=== PATIENT | male | born 1935 | race Caucasian/White ===

== ENCOUNTER 2016-06-04 02:54 | Emergency (ER) | payer MEDICARE ==
[2016-06-04] MEDS ORDERED: Saline NASAL SPRAY 0.65%* BTL BOTH NARES ONE (04:18)
--- NOTE | 2016-06-04 04:22 | ED ---
Cheryl Hernandez Rebecca, scribed for Mike Alan MD on 06/04/16 at 0331 . Throat Pain/Nasal Congestion - HPI Summary HPI Summary: Pt is an 80 y/o M BIBA who presents to ED c/o epistaxis. Pt reports that sx suddenly began at approximately 1800 and had been intermittent since onset, with the last episode starting at 0200. Bleeding was out of the left nare. Sx were resolved by applying pressure in the ED. Sx aggravated by nothing. Denies any other symptoms including lightheadedness. Is not on blood thinners. - History of Current Complaint Chief Complaint: EDEpistaxis Time Seen by Provider: 06/04/16 03:00 Hx Obtained From: Patient Onset/Duration: Sudden Onset, Lasting Hours, Resolved Associated Signs And Symptoms: Positive: Negative - Allergies/Home Medications Allergies/Adverse Reactions: Allergies Allergy/AdvReac Type Severity Reaction Status Date / Time Zolpidem [From Ambien] Allergy nightmares Verified 06/04/16 03:08 PMH/Surg Hx/FS Hx/Imm Hx Endocrine/Hematology History: Denies: Hx Diabetes Cardiovascular History: Reports: Hx Hypertension - ON MEDS Denies: Hx Pacemaker/ICD Respiratory History: Reports: Hx Asthma History: Reports: 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 APPENDECTOMY; RT CATARACT Hx Anesthesia Reactions: No Infectious Disease History: No Infectious Disease History: Denies: History Other Infectious Disease, Traveled Outside the [place] in Last 30 Days - Family History Known Family History: Positive: Other - CVAs (brother) - Social History Alcohol Use: Daily Alcohol Amount: 1 daily Substance Use Type: Reports: None Smoking Status (MU): Former Smoker Type: Cigarettes Length of Time of Smoking/Using Tobacco: "YEARS" Review of Systems Positive: Epistaxis - resolved Neurological: Other - Denies lightheadedness All Other Systems Reviewed And Are Negative: Yes Physical Exam Triage Information Reviewed: Yes Vital Signs On Initial Exam: Initial Vitals Temp Pulse Resp BP Pulse Ox 98.3 F 78 18 141/82 95 06/04/16 03:02 06/04/16 03:02 06/04/16 03:02 06/04/16 03:02 06/04/16 03:02 Vital Signs Reviewed: Yes Appearance: Positive: Well-Appearing, No Pain Distress Skin: Positive: Warm, Skin Color Reflects Adequate Perfusion, Dry Eyes: Positive: EOMI, DORINDA ENT: Positive: Other - 1 cm up the septum there is a pinpoint vein that is not currently bleeding Neck: Positive: Supple, Nontender Respiratory/Lung Sounds: Positive: Clear to Auscultation, Breath Sounds Present Cardiovascular: Positive: RRR Musculoskeletal: Positive: Normal, Strength/ROM Intact Neurological: Positive: Normal, Sensory/Motor Intact, Alert, Oriented to Person Place, Time Psychiatric: Positive: Affect/Mood Appropriate AVPU Assessment: Alert - Prather Coma Scale Coma Scale Total: 15 Diagnostics - Vital Signs Vital Signs Temp Pulse Resp BP Pulse Ox 06/04/16 03:02 98.3 F 78 18 141/82 95 - Laboratory Lab Statement: Any lab studies that have been ordered have been reviewed, and results considered in the medical decision making process. EENT Course/Dx - Course Assessment/Plan: LEFT NARE SEPTUM HAS A PUNCTATE AREA OF PRIOR BLEEDING. NO BLEEDING IN ED. BLEEDING HAD STOPPED WITH EMS APPYING PRESSURE. DISCUSSED HOW TO APPLY PRESSURE WITH PATIENT. DISCUSSED SILVER NITRATE CAUTERY VERSES WATCHING AND APPLYING PRESSURE NEEDED. PATIENT DECLINED THE CAUTERY. DISCHARGE HOME STABLE. - Diagnoses Provider Diagnoses: Epistaxis Discharge - Discharge Plan Condition: Stable Disposition: HOME Patient Education Materials: Nosebleed (ED) Referrals: Belinda Turner MD [Primary Care Provider] - Additional Instructions: IF YOUR NOSE BLEEDS, PINCH YOUR NOSE UNTIL THE BLEEDING STOPS. KEEP YOUR NASAL MUCOSA MOIST WITH SALINE NASAL SPRAY RETURN TO THE EMERGENCY DEPARTMENT FOR ANY WORSENING OF YOUR CONDITION OR QUESTIONS OR CONCERNS. The documentation as recorded by the Cheryl corona Rebecca accurately reflects the service I personally performed and the decisions made by me, Mike Alan MD.
[2016-06-04 05:08] VITALS: BP 117/83
== END 2016-06-04 05:06 | disposition home or self-care (01) ==
LOC: ED 02:54
DX: R04.0 Epistaxis (principal); I10 Essential (primary) hypertension; Z87.891 Personal history of nicotine dependence; Z95.818 Presence of other cardiac implants and grafts

== ENCOUNTER 2016-06-04 23:58 | Emergency (ER) | payer MEDICARE, MEDICAID ==
--- NOTE | 2016-06-05 01:12 | ED ---
Abner Hernandez Erika, scribed for Aries Lorenzo MD on 06/05/16 at 0041 . Throat Pain/Nasal Congestion - HPI Summary HPI Summary: Patient is an 80-year-old male presenting to the ED with c/o epistaxis intermittently starting this morning. Patient was seen for the same complaint last night, and was told to return if symptoms return. Pt reports that he has a humidifier at home which he uses. Pt denies other symptoms. - History of Current Complaint Chief Complaint: EDEpistaxis Time Seen by Provider: 06/05/16 00:14 Hx Obtained From: Patient Onset/Duration: Sudden Onset, Lasting Hours - intermittently, Still Present Severity: Moderate Associated Signs And Symptoms: Positive: Negative - Allergies/Home Medications Allergies/Adverse Reactions: Allergies Allergy/AdvReac Type Severity Reaction Status Date / Time Zolpidem [From Ambien] Allergy nightmares Verified 06/04/16 03:08 PMH/Surg Hx/FS Hx/Imm Hx Endocrine/Hematology History: Denies: Hx Diabetes Cardiovascular History: Reports: Hx Hypertension - ON MEDS Denies: Hx Pacemaker/ICD Respiratory History: Reports: Hx Asthma History: Reports: 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 APPENDECTOMY; RT CATARACT Hx Anesthesia Reactions: No Infectious Disease History: No Infectious Disease History: Denies: History Other Infectious Disease, Traveled Outside the [place] in Last 30 Days - Family History Known Family History: Positive: Other - CVAs (brother) - Social History Lives: With Family Alcohol Use: Daily Alcohol Amount: 1 daily Hx Substance Use: No Substance Use Type: Reports: None Hx Tobacco Use: Yes Smoking Status (MU): Former Smoker Type: Cigarettes Length of Time of Smoking/Using Tobacco: "YEARS" Review of Systems Negative: Fever Positive: Epistaxis All Other Systems Reviewed And Are Negative: Yes Physical Exam Triage Information Reviewed: Yes Vital Signs On Initial Exam: Initial Vitals Temp Pulse Resp BP Pulse Ox 98.3 F 74 16 144/90 96 06/05/16 00:01 06/05/16 00:01 06/05/16 00:01 06/05/16 00:01 06/05/16 00:01 Vital Signs Reviewed: Yes Appearance: Positive: Well-Appearing, No Pain Distress Skin: Positive: Warm Head/Face: Positive: Normal Head/Face Inspection Eyes: Positive: DORINDA ENT: Positive: Other - dry blood rt nares, no active bleeding Neck: Positive: Supple Respiratory/Lung Sounds: Positive: Breath Sounds Present Cardiovascular: Positive: Normal Neurological: Positive: Alert, Oriented to Person Place, Time Diagnostics - Vital Signs Vital Signs Temp Pulse Resp BP Pulse Ox 06/05/16 00:01 98.3 F 74 16 144/90 96 - Laboratory Lab Statement: Any lab studies that have been ordered have been reviewed, and results considered in the medical decision making process. Re-Evaluation - Re-Evaluation First Eval Re-Evaluation Time: 02:00 - no bleeding Change: Improved EENT Course/Dx - Course Assessment/Plan: An 80 y/o M presents to the ED with a CC of epistaxis. Epistaxis resolves in the ED. Pt will be discharged home with follow up from ENT. - Differential Diagnoses Differential Diagnoses: Epistaxis - Diagnoses Provider Diagnoses: epistaxis, resolved Discharge - Discharge Plan Condition: Stable Disposition: HOME Patient Education Materials: Nosebleed (ED) Referrals: Belinda Turner MD [Primary Care Provider] - Mike Frost MD [Medical Doctor] - Additional Instructions: Please follow up with ENT The documentation as recorded by the Abner corona Erika accurately reflects the service I personally performed and the decisions made by , Aries Lorenzo MD.
[2016-06-05 01:27] VITALS: BP 135/99
== END 2016-06-05 01:27 | disposition home or self-care (01) ==
LOC: ED 23:58
DX: R04.0 Epistaxis (principal); Z87.891 Personal history of nicotine dependence; I10 Essential (primary) hypertension; Z95.818 Presence of other cardiac implants and grafts
CPT/HCPCS: 99282

== ENCOUNTER 2018-06-06 17:13 | Emergency (ER) | payer MEDICARE, MEDICAID ==
[2018-06-06] MEDS ORDERED: NS 0.9% 1000 ML* 1,000 ML IV ONE (17:22)
[2018-06-06] MEDS ORDERED: NS 0.9% 1000 ML* 2,000 ML IV ONE (21:16)
[2018-06-06 21:18] LABS: Hematocrit 42 % (42-52); Mean Corpuscular HGB Conc 33 g/dl (31-36); Mean Corpuscular Hemoglobin 30 pg (27-31); Mean Corpuscular Volume 90 fL (80-94); Mean Platelet Volume 7.4 fL (7.4-10.4); Platelet Count 325 10^3/ul (150-450); Red Blood Count 4.67 10^6/ul (4.00-5.40); Red Cell Distribution Width 13 % (10.5-15); White Blood Count 13.6 10^3/ul (3.5-10.8)
--- NOTE | 2018-06-06 21:23 | UC ---
Altered Mental Status HPI - HPI Summary HPI Summary: 82-year-old male with a history of dementia presents with his who reports for the past 4 days patient has been very fatigued, complained of headache, nasal congestion, sore throat, and productive cough. States yesterday patient had an episode of lightheadedness when he stood up from the chair. states that since arriving to the emergency room patient also complained of some abdominal pain and had an episode of diarrhea. Patient has a history of COPD. does feel that he has been a little more short of breath than usual and is noted some wheezes. Denies fever, chest pain, diaphoresis, vomiting, dysuria, frequency, or urgency. - History Of Current Complaint Chief Complaint: EDGeneral Stated Complaint: DIFF BREATHING/COUGH/WEAKNESS Time Seen by Provider: 06/06/18 20:52 Hx Obtained From: Family/Environmental Services Specialist Hx From Patient Unobtainable Due To: Dementia Pain Intensity: 0 - Allergies/Home Medications Allergies/Adverse Reactions: Allergies Allergy/AdvReac Type Severity Reaction Status Date / Time MS Zolpidem [From Ambien] Allergy nightmares Verified 06/06/18 17:21 PMH/Surg Hx/FS Hx/Imm Hx Endocrine History: Dyslipidemia Cardiovascular History: Cardiac Disease, Hypertension, Myocardial Infarction Respiratory History: COPD - Fuentes's lung Neurological History: Dementia - Surgical History Surgical History: Yes Surgery Procedure, Year, and Place: 5 CARDIAC STENTS(DOES NOT HAVE CARDS)[facility]. APPENDECTOMY; RT CATARACT - Family History Known Family History: Positive: Other - CVAs (brother) - Social History Occupation: Retired Lives: With Family Alcohol Use: Rare Alcohol Amount: 1 daily Substance Use Type: None Smoking Status (MU): Former Smoker Type: Cigarettes Length of Time of Smoking/Using Tobacco: "YEARS" When Did the Patient Quit Smoking/Using Tobacco: 40 yrs ago Household Exposure Type: Cigarettes - Immunization History Most Recent Influenza Vaccination: 01/24/13 Most Recent Tetanus Shot: 11/18/07 Most Recent Pneumonia Vaccination: 03/27/05 Review of Systems All Other Systems Reviewed And Are Negative: Yes Constitutional: Positive: Fatigue. Negative: Fever, Chills Skin: Negative: Rash Eyes: Negative: Drainage, Eye Redness ENT: Positive: Sore Throat, Nasal Discharge, Sinus Congestion. Negative: Ear Ache Respiratory: Positive: Shortness Of Breath, Cough Cardiovascular: Negative: Palpitations, Chest Pain Gastrointestinal: Positive: Abdominal Pain, Diarrhea, Nausea. Negative: Vomiting Genitourinary: Negative: Dysuria, Frequency, Urgency Musculoskeletal: Positive: Negative Neurological: Positive: Headache. Negative: Weakness, Paresthesia, Numbness Is Patient Immunocompromised?: No Physical Exam - Summary Physical Exam Summary: GENERAL APPEARANCE: Frail, chronically ill-appearing elderly male who is awake, responds to voice and makes eye contact but non-verbal, yet appears to be in no acute distress. HEAD: Atraumatic. normocephalic. EYES: PERRL, EOM intact. Vision is grossly intact. EARS: External auditory canals and tympanic membranes clear. NOSE: No nasal discharge. THROAT: Mucous membranes dry. Pharynx normal with no tonsilar inflammation, swelling, exudate, or lesions. NECK: Neck supple, non-tender without lymphadenopathy. CARDIAC: Normal S1 and S2. No S3, S4 or murmurs. Rhythm is regular. There is no peripheral edema, cyanosis or pallor. Extremities are warm and well perfused. Capillary refill is less than 2 seconds. Peripheral pulses intact. LUNGS: No acute respiratory distress. Few fine crackles were auscultated in the right mid lung without wheezing or diminished breath sounds. ABDOMEN: Positive bowel sounds. Soft, nondistended, nontender. No guarding. No masses or hepatosplenomegally. MUSKULOSKELETAL: ROM intact to all extremities. No joint erythema or tenderness. NEUROLOGICAL: Alert. Responds to verbal stimuli, makes eye contact, follows simple commands. Non-verbal. Sensation grossly intact throughout. SKIN: Skin normal color. Dry texture with diminished turgor. No significant rashes, lesions, or eruptions noted. Triage Information Reviewed: Yes Vital Signs: Initial Vital Signs Temp 97.7 F 06/06/18 17:19 Pulse 95 06/06/18 17:19 Resp 19 06/06/18 17:19 BP 96/61 06/06/18 17:19 Pulse Ox 95 06/06/18 17:19 Vital Signs Reviewed: Yes Diagnostics - Radiology No standard instances Radiology Interpretation Completed By: Radiologist Summary of Radiographic Findings: Patient Name: DONNIE GUZMAN Medical Record#: [id number]. Ordering Physician: Sathya Whitfield MD Acct.#: [id number]. : Age: 82 Sex: M Location: EMERGENCY DEPARTMENT. Exam Date: 06/06/18 172 ADM Status: REG ER. Order Information: CHEST PA LAT 2 VWS. Accession Number: [id number]. CPT: 25743. Indication: Cough and fever. 2 views of the chest including dual energy PA views are reviewed. No mediastinal shift is. noted. Lung son appear hyperinflated. No pleural fluid is identified. There is suggestion of some airspace disease in the periphery of the right upper lobe. No pleural fluid is identified. IMPRESSION: Periphery of the right midlung field there is increased density for which underlying infiltrate is not excluded. Lung son appear hyperinflated. Re-Evaluation - Re-Evaluation First Eval Re-Evaluation Time: 22:50 Change: Improved Comment: Patient more alert. Responds verbally to quetions and follows directions. Afebrile. VSS. No respiratory distress. More prominent crackles are ausculated over the right mid lung. Abdomen soft and non-tender. No diarrhea. Patient has received 1 liter of NS at this time. Influenza and UA are pending. Will administer second liter of NS and continue to monitor pending these results but will likely discharge home with ourpatient treatment for CAP. Second Eval Re-Evaluation Time: 00:00 Change: Improved Comment: Patient awake and alert. states he appears to be at his normal mentation. No respiratory distress. Abdomen soft, nontende. No diarrhea. Afebrile. VSS. Rapid flu negative. UA without evidence of infection. Will treat for CAP with Augmentin and azithromycin. First doses given in the ED. AMS Course/Dx - Course Course Of Treatment: 82-year-old male with a history of dementia presents with his who reports for the past 4 days patient has been very fatigued, complained of headache, nasal congestion, sore throat, and productive cough. States yesterday patient had an episode of lightheadedness when he stood up from the chair. states that since arriving to the emergency room patient also complained of some abdominal pain and had an episode of diarrhea. Patient has a history of COPD. does feel that he has been a little more short of breath than usual and is noted some wheezes. Denies fever, chest pain, diaphoresis, vomiting, dysuria, frequency, or urgency. Afebrile. Mildlly hypotensive otherwise vital signs within normal parameters. Exam revealed a frail, chronically ill-appearing elderly male who was alert to verbal stimuli making eye contact but non-verbal. Physical exam was limited by his diminished mental state but he was in no acute respiratory distress, few fine crackles noted on right mid lung, abdomen was soft and nontender without guarding. NSR on the awake overnight monitor. CXR showed possible infiltrate right mid-upper lung. CBC showed a slightly elevated WBC of 13.7 without left shift, mild hyponatremia with Na 133, BUN 30 and Cr 1.58 likely from dehydration, Glu 117, UA showed no evidence of infection, and rapid flu was negative. Patient received 2 liters normal saline with good improvement in his mentation returning to baseline according to . Crackles in the right mid lung became more prominent with the hydration. He had no further episodes of diarrhea or complaints of abdominal pain through the course of his stay. Results were reviewed with the . Will treat for CAP with course of Augmentin and azithromycin, first doses were given in the ED. He is to follow up with his PCP at the beginning of the week for recheck of symptoms. Warning symtoms were reviwed with who verbalizes understanding and agrees with POC. - Differential Dx/Clinical Impression Differential Diagnosis/HQI/PQRI: Sepsis, Other - Pneumonia, Dementia, UTI Provider Diagnosis: Community acquired pneumonia Discharge - Sign-Out/Discharge Documenting (check all that apply): Patient Departure - Discharge Plan Condition: Improved Disposition: HOME Prescriptions: Amoxicillin/Clavulanate TAB* [Augmentin TAB 875*] 875 mg PO BID #20 tab Azithromycin TAB* [Zithromax TAB (Z-MONICA) 250 mg #6 tabs] 250 mg PO DAILY #4 tab Patient Education Materials: Community Acquired Pneumonia (ED) Referrals: Ann-Marie Gaytan MD [Primary Care Provider] - 3 Days Additional Instructions: Take Augmentin 875 mg 1 tab twice a day for 10 days. You were given the first dose in the emergency room. Take azithromycin 250 mg 1 tab daily starting tomorrow. We gave you the first dose in the emergency room. Push plenty of fluids. Continue other medications as prescribed. Seek immediate medical attention in the emergency room if you have fever greater than 100.5 F, decreased mental status, dizziness, weakness, chest pain, worsening shortness of breath, or any worsening of symptoms. - Billing Disposition and Condition Condition: IMPROVED Disposition: Home
[2018-06-06 21:34] LABS: Albumin 3.3 g/dL (3.2-5.2); Albumin/Globulin Ratio 0.8 (1-3); Calcium 9.1 mg/dL (8.6-10.3); EGFR Non-African American 42.2 (>60); Globulin 3.9 g/dL (2-4); Potassium 4.1 mmol/L (3.5-5.0); Total Bilirubin 0.6 mg/dL (0.2-1.0); Total Protein 7.2 g/dL (6.4-8.9)
[2018-06-06 21:44] LABS: ABS Basophils 0.1 10^3/ul (0-0.2); ABS Eosinophils 0.7 10^3/ul (0-0.6); ABS Lymphocytes 2.2 10^3/ul (1.0-4.8); ABS Monocytes 1.2 10^3/ul (0-0.8); ABS Neutrophils 9.4 10^3/ul (1.5-7.7); ABS Nucleated RBC 0 10^3/ul; Lymphocyte % 16.1 %; Nucleated Red Blood Cells % 0
[2018-06-06 23:30] LABS: Urine Appearance Clear; Urine Bacteria Absent (Absent); Urine Bilirubin Negative (Negative); Urine Blood 1+ (Negative); Urine Color Yellow; Urine Glucose Negative (Negative); Urine Ketones Negative (Negative); Urine Nitrite Negative (Negative); Urine Protein 1+(30 mg/dL) (Negative); Urine Red Blood Cell Trace(0-2/hpf) (Absent); Urine Specific Gravity 1.013 (1.010-1.030); Urine Urobilinogen Negative (Negative); Urine White Blood Cell Trace(0-5/hpf) (Absent)
[2018-06-06] MEDS ORDERED: Azithromycin TAB* 250 MG PO ONE (23:52)
[2018-06-06] MEDS ORDERED: Amoxicillin/Clavulanate TAB* 875 MG PO ONE (23:52)
[2018-06-07 00:34] VITALS: BP 140/79
== END 2018-06-07 00:55 | disposition home or self-care (01) ==
LOC: ED 17:13
DX: J18.9 Pneumonia, unspecified organism (principal); J02.9 Acute pharyngitis, unspecified; Z87.891 Personal history of nicotine dependence; R51 Headache; R53.83 Other fatigue; R19.7 Diarrhea, unspecified
CPT/HCPCS: 36415; 71046; 80053; 81003; 81015; 83605; 84484; 85025; 87040; 87086; 96360; 99284; A9270-GY

== ENCOUNTER 2018-06-24 01:51 | Observation (INO) | payer MEDICARE, MEDICAID ==
[2018-06-24] MEDS ORDERED: NS 0.9% 1000 ML* 1,000 ML IV ONE ×2 (02:17→10:29)
--- NOTE | 2018-06-24 02:18 | ED ---
Syncope/Near Syncope - HPI Summary HPI Summary: Patient is a 83 y/o M presenting to ED via ambulance with complaints of syncopal episode. reports that he stood up to go to the bathroom and after a few steps he had the syncopal episode, no LOC. was able to catch the patient, he did not hit head. No back pain, no neck pain, no CRAIG reported. PNA was diagnosed last week, family notes that patient has been weak since. reports that patient has had a cough, but no fever. PMHx of dementia. He is alert and oriented to place and name. On triage, pain is denied, nothing is noted to aggravate/alleviate Sx. Home medications and allergies are reviewed. - History Of Current Complaint Chief Complaint: EDSyncope Time Seen by Provider: 06/24/18 02:05 Hx Obtained From: Patient, Family/Accounts Payable Processor - Onset/Duration: Sudden Onset, Resolved Timing: Intermittent Episode Lasting Context: Witnessed Activity At Onset: Other - walking Associated Head Trauma: No Aggravating Factor(s): Nothing Alleviating Factor(s): Nothing Associated Signs And Symptoms: Other - no back pain, no neck pain, no CRAIG, no LOC , no head injury, no fever; endorses cough, fatigue - Allergies/Home Medications Allergies/Adverse Reactions: Allergies Allergy/AdvReac Type Severity Reaction Status Date / Time MS Zolpidem [From Ambien] Allergy nightmares Verified 06/06/18 17:21 Home Medications: Home Medications Donepezil TAB* [Aricept 5 MG TAB*] 5 mg PO DAILY 06/24/18 [History Confirmed ] Quetiapine Fumarate [Quetiapine 100 mg] 1 tab PO BEDTIME 06/24/18 [History Confirmed 06/24/18] buPROPion HCl [Bupropion HCl Xl] 150 mg PO DAILY 06/24/18 [History Confirmed ] PMH/Surg Hx/FS Hx/Imm Hx Endocrine/Hematology History: Denies: Hx Diabetes Cardiovascular History: Reports: Hx Hypertension - ON MEDS Denies: Hx Pacemaker/ICD Respiratory History: Reports: Hx Asthma History: Reports: Other Problems/Disorders - 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; RT CATARACT Hx Anesthesia Reactions: No Infectious Disease History: No Infectious Disease History: Denies: History Other Infectious Disease, Traveled Outside the [place] in Last 30 Days - Family History Known Family History: Positive: Other - CVAs (brother) - Social History Alcohol Use: Weekly Alcohol Amount: 1 daily Hx Substance Use: No Substance Use Type: Reports: None Hx Tobacco Use: Yes Smoking Status (MU): Former Smoker Type: Cigarettes Length of Time of Smoking/Using Tobacco: "YEARS" Review of Systems Positive: Fatigue. Negative: Fever Positive: Cough Positive: Other - NEGATIVE - NECK PAIN, BACK PAIN, NO HEAD INJURY Positive: Syncope - no LOC. Negative: Headache All Other Systems Reviewed And Are Negative: Yes Physical Exam - Summary Physical Exam Summary: VITAL SIGNS: Reviewed. GENERAL: Patient is a well-developed and nourished male who is lying comfortable in the stretcher. Patient is not in any acute respiratory distress. HEAD AND FACE: No signs of trauma. No ecchymosis, hematomas or skull depressions. No sinus tenderness. EYES: PERRLA, EOMI x 2, No injected conjunctiva, no nystagmus. EARS: Hearing grossly intact. Ear canals and tympanic membranes are within normal limits. MOUTH: Oropharynx within normal limits. NECK: Supple, trachea is midline, no adenopathy, no JVD, no carotid bruit, no c- spine tenderness, neck with full ROM. CHEST: Symmetric, no tenderness at palpation LUNGS: Clear to auscultation bilaterally. No wheezing or crackles. CVS: Regular rate and rhythm, S1 and S2 present, no murmurs or gallops appreciated. ABDOMEN: Soft, non-tender. No signs of distention. No rebound no guarding, and no masses palpated. Bowel sounds are normal. EXTREMITIES: FROM in all major joints, no edema, no cyanosis or clubbing. NEURO: Alert and oriented to place and person. No acute neurological deficits. Speech is normal and follows commands. SKIN: Dry and warm Triage Information Reviewed: Yes Vital Signs On Initial Exam: Initial Vitals Temp Pulse Resp BP Pulse Ox 97.9 F 84 18 125/87 89 06/24/18 01:56 06/24/18 01:56 06/24/18 01:56 06/24/18 01:56 06/24/18 01:56 Vital Signs Reviewed: Yes Diagnostics - Vital Signs Vital Signs Temp Pulse Resp BP Pulse Ox 06/24/18 01:56 97.9 F 84 18 125/87 89 - Laboratory Result Diagrams: 06/24/18 02:45 06/24/18 02:45 Lab Statement: Any lab studies that have been ordered have been reviewed, and results considered in the medical decision making process. - Radiology CXR Radiology Interpretation Completed By: ED Physician Summary of Radiographic Findings: 1. PERIPHERY OF RIGHT MID LUNG FIELD IS DENSE , POSSIBLY INFILRATE, HAD SAME FINDS ON 06/16/18. 2. NEW INFILTRATE OVER LEFT LOWER LUNG - CT cta chest/thorax CT Interpretation Completed By: Radiologist Summary of CT Findings: CTA CHEST/THORAX IMPRESSION: 1. No pulmonary embolism. 2. Development of irregular opacities in the right lower lobe measuring up to. 3.7 cm since the prior CT scan on 11/30/2013. See management guidelines below. 3. Development of tree in bud opacities in both lungs since the prior CT scan. on 11/30/2013, which may indicate an infectious bronchiolitis, aspiration. bronchiolitis, or follicular bronchiolitis. 4. Mucus plugging in the right lower lobe, lingula, and left lower lobe bronchi. and mild atelectasis or consolidation in the inferior lingula. 5. Dilated ascending aorta, which is similar in appearance compared to the. prior CT scan on 2013. 6. Partially imaged infrarenal abdominal aortic aneurysm, which was also. present on the prior CT scan on 11/30/2013. No rupture identified from the. images obtained. 7. Chronic compression deformities at T2, T3, T6, T7, T9 , T11, L1, and L2 as. detailed above, which are fairly similar in appearance compared to the prior CT. scan on 11/30/2013. This report was reviewed by ED physician. - EKG 0303 Cardiac Rate: NL - rate of 75 BPM EKG Rhythm: Sinus Rhythm ST Segment: Normal Summary of EKG Findings: EKG showed sinus rhythm with rate of 75 BPM, normal axis, interval, ST. Course/Dx Course Of Treatment: Patient is a 83 y/o M presenting to ED via ambulance with complaints of syncopal episode. reports that he stood up to go to the bathroom and after a few steps he had the syncopal episode, no LOC. was able to catch the patient, he did not hit head. No back pain, no neck pain, no CRAIG reported. PNA was diagnosed last week, family notes that patient has been weak since. reports that patient has had a cough, but no fever. PMHx of dementia. He is alert and oriented to place and name. EKG showed sinus rhythm with rate of 75 BPM, normal axis, interval, ST. CXR IMPRESSION 1. PERIPHERY OF RIGHT MID LUNG FIELD IS DENSE, POSSIBLY INFILRATE, HAD SAME FINDS ON . 2. NEW INFILTRATE OVER LEFT LOWER LUNG. Labs showed WBC 11.1, absolute neuts 8.2, absolute eos 1, creatinine 1.59, glucose 119, lactic acid 1.3, alk phos 107, trop 0.01, BNP 41, albumin/globulin ratio 0.9, TSH 0.73. During ED course, patient was given fluids and Levaquin 750 mg IVpremix. CTA CHEST/ THORAX IMPRESSION: 1. No pulmonary embolism. 2. Development of irregular opacities in the right lower lobe measuring up to. 3.7 cm since the prior CT scan on 11/30/2013. See management guidelines below. 3. Development of tree in bud opacities in both lungs since the prior CT scan. on 11/30/2013, which may indicate an infectious bronchiolitis, aspiration. bronchiolitis, or follicular bronchiolitis. 4. Mucus plugging in the right lower lobe, lingula, and left lower lobe bronchi. and mild atelectasis or consolidation in the inferior lingula. 5. Dilated ascending aorta, which is similar in appearance compared to the. prior CT scan on 11/30/2013. 6. Partially imaged infrarenal abdominal aortic aneurysm, which was also. present on the prior CT scan on 11/30/2013. No rupture identified from the. images obtained. 7. Chronic compression deformities at T2, T3, T6, T7, T9, T11, L1, and L2 as. detailed above, which are fairly similar in appearance compared to the prior CT. scan on 11/30/2013. Patient's case was discussed with Dr. Mcconnell, Dr. Mcconnell accepts for admission. - Diagnoses Provider Diagnoses: PNA (pneumonia), Syncope - Physician Notifications Discussed Care of Patient With: Angie Mcconnell Time Discussed With Above Provider: 05:14 Instructed by Provider To: Other - Patient's case was discussed with Dr. Mcconnell, Dr. Mcconnell accepts for admission. Discharge - Sign-Out/Discharge Documenting (check all that apply): Patient Departure - admit - Discharge Plan Condition: Good Disposition: ADMITTED TO [facility] Referrals: Ann-Marie Gaytan MD [Primary Care Provider] - - Attestation Statements Document Initiated by Scribe: Yes Documenting Scribe: SHAGGY FORBES Provider For Whom Scribe is Documenting (Include Credential): BRIGHT HOLLOWAY MD Scribe Attestation: I, SHAGGY FORBES , scribed for BRIGHT HOLLOWAY MD on 06/24/18 at 0515. Status of Scribe Document: Ready
[2018-06-24 02:52] LABS: ABS Basophils 0.1 10^3/ul (0-0.2); ABS Monocytes 0.8 10^3/ul (0-0.8); ABS Neutrophils 8.2 10^3/ul (1.5-7.7); ABS Nucleated RBC 0 10^3/ul; Eosinophil % 8.7 %; Hematocrit 45 % (42-52); Hemoglobin 14.7 g/dl (14.0-18.0); Lymphocyte % 8.7 %; Mean Corpuscular HGB Conc 33 g/dl (31-36); Mean Corpuscular Hemoglobin 30 pg (27-31); Mean Corpuscular Volume 92 fL (80-94); Mean Platelet Volume 7.6 fL (7.4-10.4); Nucleated Red Blood Cells % 0; Platelet Count 205 10^3/ul (150-450); Red Blood Count 4.89 10^6/ul (4.00-5.40); Red Cell Distribution Width 13 % (10.5-15); White Blood Count 11.1 10^3/ul (3.5-10.8)
[2018-06-24 03:05] LABS: INR 1.01 (0.77-1.02)
[2018-06-24 03:09] LABS: Albumin 3.2 g/dL (3.2-5.2); Albumin/Globulin Ratio 0.9 (1-3); BUN/Creatinine Ratio 13.2 (8-20); Calcium 9.1 mg/dL (8.6-10.3); EGFR African American 50.6 (>60); EGFR Non-African American 41.8 (>60); Globulin 3.5 g/dL (2-4); Magnesium 2.1 mg/dL (1.9-2.7); Potassium 4.7 mmol/L (3.5-5.0); Total Bilirubin 0.6 mg/dL (0.2-1.0); Total Protein 6.7 g/dL (6.4-8.9)
[2018-06-24 03:12] LABS: Troponin I 0.01 ng/mL (<0.04)
[2018-06-24] MEDS ORDERED: Iodixanol* (CONTRAST) 320 MG/ML 100 ML SDV IV ONE (03:22)
[2018-06-24] MEDS ORDERED: Levofloxacin 750 MG IVPREMIX(* 750 MG/150 ML BAG IVPB ONE (03:41)
[2018-06-24 03:49] LABS: TSH (Thyroid Stimulating Horm) 0.73 mcIU/mL (0.34-5.60)
[2018-06-24] MEDS ORDERED: Albuterol HFA INHALER* 8 gm MDI INH PRN (05:24)
[2018-06-24] MEDS ORDERED: Albuterol 2.5 MG/3 ML NEB.SOL* (0.083%) INH PRN ×2 (05:24→15:44)
[2018-06-24] MEDS ORDERED: NS 0.9% 1000 ML* 1,000 ML IV SCH (05:30)
--- NOTE | 2018-06-24 05:35 | ADMNOTE ---
Subjective Date of Service: 06/24/18 Interval History: 83 year old Male with past history of COPD, AAA, coronary artery disease, hypertension, dementia who was brought to the hospital because of a pre- syncopal episode. Patient's witnessed the episode. Patient cannot give much history, when asked questions he states he does not know. Per ED, reported that he stood up to go to the bathroom and after a few steps he had the syncopal episode, no Loss of consciousness. was able to catch the patient, he did not hit head. No back pain, no neck pain, no Headachahe. He was diagnosed with pneumonia last week, and has been weak since. Family History: Findings - per records brothers had aneurysm and stroke Social History: Findings - Lives at home with , former smoker, former alcohol use Past Medical History: Findings - Hypertension, coronary artery disease, COPD, [place] , AAA, GERD, surgeries include appendectomy Review of Systems - Measurements Intake and Output: Intake and Output Last 24 Hours 06/21/18 06/22/18 06/23/18 06/24/18 06:59 06:59 06:59 06:59 Weight 173 lb - Review of Systems General Comments: ROS is limited, as mentioned in HPI, patient when asked questions states I don' t know. HPI was from the Objective Active Medications: Albuterol (Ventolin 2.5 Mg/3 Ml Neb.Kristi*) 2.5 mg INH Q4H PRN PRN Reason: WHEEZING Albuterol (Ventolin Hfa Inhaler*) 2 puff INH Q4H PRN PRN Reason: WHEEZING Aspirin (Ecotrin Ec Tab*) 325 mg PO DAILY HERRERA Atorvastatin Calcium (Lipitor*) 40 mg PO DAILY HERRERA Bupropion HCl (Wellbutrin Xl *) 150 mg PO DAILY HERRERA Citalopram Hydrobromide (Celexa Tab*) 40 mg PO DAILY HERRERA Donepezil HCl (Aricept Tab*) 5 mg PO DAILY HERRERA Enoxaparin Sodium (Lovenox(*)) 40 mg SUBCUT Q24H HERRERA Piperacillin Sod/Tazobactam (Sod 3.375 gm/ Sodium Chloride) 100 mls @ 25 mls/ hr IVPB Q8H HERRERA Lisinopril (Prinivil Tab*) 5 mg PO DAILY HERRERA Montelukast Sodium (Singulair Tab*) 10 mg PO DAILY HERRERA Fluticasone/Salmeterol (Advair Diskus 500-50*) 1 puff INH BID HERRERA Vital Signs - 8 hr 06/24/18 06/24/18 06/24/18 01:56 01:58 01:59 Temperature 97.9 F Pulse Rate 84 85 85 Respiratory 18 18 20 Rate Blood Pressure 125/87 125/87 (mmHg) O2 Sat by Pulse 89 89 90 Oximetry 06/24/18 06/24/18 06/24/18 02:00 02:28 02:58 Temperature Pulse Rate 83 79 78 Respiratory 22 22 25 Rate Blood Pressure 140/92 139/97 (mmHg) O2 Sat by Pulse 90 96 97 Oximetry 06/24/18 06/24/18 06/24/18 03:00 03:28 03:58 Temperature Pulse Rate 75 75 65 Respiratory 17 28 Rate Blood Pressure 144/95 149/92 (mmHg) O2 Sat by Pulse 97 97 97 Oximetry 06/24/18 06/24/18 06/24/18 04:00 04:28 04:58 Temperature Pulse Rate 69 68 69 Respiratory 19 16 Rate Blood Pressure 149/97 154/96 (mmHg) O2 Sat by Pulse 97 99 97 Oximetry Oxygen Devices in Use Now: Nasal Cannula Appearance: Elderly male, lying in bed, with nasal canula, not in distress Eyes: PERRLA, - - No nystagmus Ears/Nose/Mouth/Throat: - - oral mucosa is dry. no oropharyngeal erythema Respiratory: - - Mild tachypnea, with rhonchi, no wheezing. Cardiovascular: RRR, No Edema, - - soft systolic murmur at the apex. Abdominal: NL Sounds; No Tenderness; No Distention, No Hepatosplenomegaly Extremities: No Edema, No Clubbing, Cyanosis Neurological: - - alert/awake, oriented X person/place. motor 4/5 at the lower extremities Result Diagrams: 06/24/18 02:45 06/24/18 02:45 Diagnostic Imaging: IMPRESSION: 1. No pulmonary embolism. 2. Development of irregular opacities in the right lower lobe measuring up to 3.7 cm since the prior CT scan on 11/30/2013. See management guidelines below. 3. Development of tree in bud opacities in both lungs since the prior CT scan on 11/30/2013, which may indicate an infectious bronchiolitis, aspiration bronchiolitis, or follicular bronchiolitis. 4. Mucus plugging in the right lower lobe, lingula, and left lower lobe bronchi and mild atelectasis or consolidation in the inferior lingula. 5. Dilated ascending aorta, which is similar in appearance compared to the prior CT scan on 11/30/2013. 6. Partially imaged infrarenal abdominal aortic aneurysm, which was also present on the prior CT scan on 11/30/2013. No rupture identified from the images obtained. 7. Chronic compression deformities at T2, T3, T6, T7, T9, T11, L1, and L2 as detailed above, which are fairly similar in appearance compared to the prior CT scan on 11/30/2013. [employer] 2017 GUIDELINES FOR MANAGEMENT OF INCIDENTAL PULMONARY NODULES: Multiple solid nodules >8 mm: In a low risk patient, CT at 3-6 months, then consider CT at 18-24 months. Use most suspicious nodule as guide to management. Follow-up intervals may vary according to size and risk. In a high risk patient, CT at 3-6 months, then at 18-24 months. High Risk Patients as defined in the 2017 [employer] Society Guidelines: ? History of heavy smoking ? Exposure to asbestos, radium, or uranium ? Family history of lung cancer ? Emphysema and pulmonary fibrosis (IPF in particular) ? Older age ? Sex (females at greater risk than men) ? Race (Blacks and at higher risk) ? Marginal spiculation / suspicious morphology ? Upper lobe location (also apex) ? Multiple nodules (2-5 nodules highest risk) ? Exceptions, such as technically suboptimal scanning Natasha H, Rhys DP, Filipeo JM, et al. Guidelines for Management of Incidental This report is only to be considered final once signed by the Provider(s) as displayed in the "<Electronically Signed by >" field (s). Absence of a signature indicates the report is in a draft status and still needs to be finalized. In the event this document was created by someone other than the signing Provider, the individual initiating the document will be listed in the "Entered by:" or "Dictated by:" son. 2 of 3 EKG Data: EKG: sinus rhythm Assess/Plan/Problems-Billing Assessment: 83 year old Male with dementia, CAD, COPD, here with pre-syncopal episode. - Patient Problems (1) Pneumonia Current Visit: Yes Status: Acute Code(s): J18.9 - PNEUMONIA, UNSPECIFIED ORGANISM SNOMED Code(s): 411608283 Comment: recent pneumonia. CT shows tree in bud opacities in both lungs with mucus plugging. Will treat with zosyn. get sputum culture, blood culture, urine legionella and strep antigen. (2) Pre-syncope Current Visit: Yes Status: Acute Comment: patient is on numerous medications , will hold trazodone and seroquel. IV fluids, check orthostatics. will get echo. (3) Lung mass Current Visit: Yes Status: Acute Code(s): R91.8 - OTHER NONSPECIFIC ABNORMAL FINDING OF LUNG FIELD SNOMED Code(s): 356493645 Comment: will need evaluation (4) COPD (chronic obstructive pulmonary disease) Current Visit: Yes Status: Chronic Code(s): J44.9 - CHRONIC OBSTRUCTIVE PULMONARY DISEASE, UNSPECIFIED SNOMED Code(s): 15141020 Comment: continue home regimen supplemental O2 (5) Dementia Current Visit: Yes Status: Chronic Code(s): F03.90 - UNSPECIFIED DEMENTIA WITHOUT BEHAVIORAL DISTURBANCE SNOMED Code(s): 77533288 Comment: supportive care. (6) Hypertension Current Visit: Yes Status: Acute Code(s): I10 - ESSENTIAL (PRIMARY) HYPERTENSION SNOMED Code(s): 22189642 Comment: Continue home medicaitons. (7) History of coronary artery disease Current Visit: Yes Status: Acute Code(s): Z86.79 - PERSONAL HISTORY OF OTHER DISEASES OF THE CIRCULATORY SYSTEM SNOMED Code(s): 183063045 Comment: continue aspirin, statin (8) DVT prophylaxis Current Visit: Yes Status: Acute Code(s): HDM9868 - SNOMED Code(s): 943875965 Comment: lovenox subQ Medications/Allergies Medications: Home Medications Medication Instructions Recorded Confirmed Type Albuterol 2.5MG/3ML (0.083%)* 3 ml INH Q4H PRN 11/30/13 06/24/18 History [Ventolin 2.5 MG/3 ML NEB.KRISTI*] Albuterol HFA INHALER* [Ventolin 2 puff INH Q4H PRN 11/30/13 06/24/18 History HFA Inhaler*] Aspirin [Aspirin EC] 325 mg PO DAILY 11/30/13 06/24/18 History Atorvastatin* [Lipitor 40 MG*] 40 mg PO DAILY 11/30/13 06/24/18 History Citalopram TAB* [Celexa TAB*] 40 mg PO DAILY 11/30/13 06/24/18 History Fluticasone-Salmeterol 500-50* 1 puff INH BID 11/30/13 06/24/18 History [Advair Diskus 500-50*] Lisinopril TAB* [Prinivil TAB 5 5 mg PO DAILY 11/30/13 06/24/18 History MG*] Montelukast Sodium TAB* [Singulair 10 mg PO DAILY 11/30/13 06/24/18 History 10 MG TAB*] traZODone TAB* [Desyrel TAB*] 150 mg PO BEDTIME 11/30/13 06/24/18 History Donepezil TAB* [Aricept 5 MG TAB*] 5 mg PO DAILY 06/24/18 06/24/18 History Quetiapine Fumarate [Quetiapine 1 tab PO BEDTIME 06/24/18 06/24/18 History 100 mg] buPROPion HCl [Bupropion HCl Xl] 150 mg PO DAILY 06/24/18 06/24/18 History Allergies/Adverse Reactions: Allergies Allergy/AdvReac Type Severity Reaction Status Date / Time MS Zolpidem [From Dov] Allergy nightmares Verified 06/06/18 17:21
[2018-06-24] MEDS ORDERED: Zosyn per Pharmacy* NOTE FOLLOW UP PRN (05:47)
[2018-06-24] MEDS ORDERED: Zosyn 3.375 GM IV - ED ONCE IVPB ONE ×2 (06:00)
[2018-06-24] MEDS ORDERED: Enoxaparin(*) 40 MG/0.4 ML SYR SUBCUT SCH (06:00)
[2018-06-24] MEDS ORDERED: Lisinopril TAB* 5 MG PO SCH (09:00)
[2018-06-24] MEDS: Mometasone/Formoter 200/5 MDI INH SCH ×3 (09:58→20:35)
[2018-06-24 10:13] LABS: Urine Appearance Clear; Urine Bilirubin Negative (Negative); Urine Blood Negative (Negative); Urine Color Yellow; Urine Glucose Negative (Negative); Urine Ketones Negative (Negative); Urine Nitrite Negative (Negative); Urine Protein Negative (Negative); Urine Specific Gravity 1.046 (1.010-1.030); Urine Urobilinogen Negative (Negative)
[2018-06-24] MEDS: Atorvastatin* 40 MG TAB PO SCH (10:38)
[2018-06-24] MEDS: Donepezil TAB* 5 MG PO SCH (10:38)
[2018-06-24] MEDS: Montelukast Sodium TAB* 10 MG PO SCH (10:38)
[2018-06-24] MEDS: Aspirin EC TAB* 325 MG PO SCH (10:38)
[2018-06-24] MEDS: Citalopram TAB* 40 MG PO SCH (10:38)
[2018-06-24] MEDS: BuPROPion XL* 150 MG TAB.XL PO SCH (10:46)
[2018-06-24] MEDS: Piperacillin/Tazobac ADVAN(*) 3.375 GM in NS 0.9% 100 ML* 100 ML IVPB SCH ×2 (11:06→17:57)
--- NOTE | 2018-06-24 11:45 | ECHO ---
Patient: DONNIE GUZMAN [facility] Rec#: [id number] : 1935 Date: 06/24/2018 Age: 83y Height: 185 cm / 72.8 in Weight: 78 kg / 171.9 lbs Sex: M BSA: 2.01 Room#: [facility] Admit Date#: 06/24/2018 Type: Inpatient Referring: Angie Mcconnell Reading: Lukasz Rodriguez MD Cycle Manager: Ana Olson RDCS CC: Ann-Marie Gaytan MD Transthoracic Echocardiogram Indication: Syncope BP: 140/89 HR: 54 Rhythm: Bradycardia Findings History: COPD, ascending aortic aneurysm, CAD, HTN, dementia, soft murmur, recent pneumonia. Technical Comments: The study quality is fair. The study is technically limited due to poor parasternal windows. Completed at 0830. Left Ventricle: The left ventricular chamber size is normal. Mild concentric left ventricular hypertrophy is observed. Mild global hypokinesis of the left ventricle is observed. There is mild to moderately decreased left ventricular systolic function. The estimated ejection fraction is 40-45%. Abnormal left ventricular diastolic function is observed. There is an E to A reversal in the mitral valve flow pattern suggestive of diastolic dysfunction. Left Atrium: The left atrial chamber size is normal. Right Ventricle: Moderator Band present. The right ventricle is mildly dilated. The right ventricular global systolic function is low normal. Right Atrium: The right atrium is moderately dilated. Aortic Valve: The aortic valve is trileaflet. The aortic valve leaflets are mildly thickened. There is trace to mild aortic regurgitation. There is no evidence of aortic stenosis. Mitral Valve: The mitral valve leaflets are mildly thickened. There is a trace of mitral regurgitation. There is no evidence of mitral stenosis. Tricuspid Valve: The tricuspid valve leaflets are normal. There is trace to mild tricuspid regurgitation. The right ventricular systolic pressure is estimated at 24 mmHg. There is no tricuspid stenosis. Pulmonic Valve: The pulmonic valve appears normal. There is a trace pulmonic regurgitation. There is no pulmonic stenosis. Pericardium: There is no significant pericardial effusion. Aorta: There is mild dilatation of the ascending aorta. There is no dilatation of the aortic arch. The aortic root is normal in size. Pulmonary Artery: The main pulmonary artery is not well visualized. Venous: The inferior vena cava appears normal in size. There is a greater than 50% respiratory change in the inferior vena cava dimension. Conclusions Mild concentric left ventricular hypertrophy is observed. There is mild to moderately decreased left ventricular systolic function. The estimated ejection fraction is 40-45%. There is an E to A reversal in the mitral valve flow pattern suggestive of diastolic dysfunction. The right ventricular global systolic function is low normal. There is trace to mild aortic regurgitation. There is no evidence of aortic stenosis. There is a trace of mitral regurgitation. There is trace to mild tricuspid regurgitation. There is no significant pericardial effusion. There is mild dilatation of the ascending aorta. Compared to study of 10/18/10, the LV function is lower No change in valve structures Measurements Name Value Normal Range RVIDd (AP) 2D 3.2 cm (0.9 - 2.6) RVDdMajor (2D) 4.7 cm (2.2 - 4.4) RAd ISD 4CH 5.7 cm (3.4 - 4.9) RA (A4C)W 3.7 cm (2.9 - 4.6) IVSd (2D) 1.2 cm (0.6 - 1) LVPWd (2D) 1.1 cm (0.6 - 1) LVIDd (2D) 4.6 cm (3.6 - 5.4) LVIDs (2D) 3.4 cm - LV FS (2D) 26 % (25 - 45) Aortic Annulus 2.2 cm (1.4 - 2.6) Ao root diameter (2D) 3.5 cm (2.1 - 3.5) Ascending Ao 3.8 cm (2.1 - 3.4) Aortic arch 2.8 cm (1.8 - 3.4) LA dimension (AP) 2D 3.7 cm (2.3 - 3.8) LAd ISD 4CH 5.5 cm (2.9 - 5.3) LA ISD 4CH W 4.2 cm (2.5 - 4.5) Name Value Normal Range LA ESV BP (A/L) index 29 ml/m2 - Name Value Normal Range MV E-wave Vmax 0.4 m/sec - MV deceleration time 278 msec - MV A-wave Vmax 0.6 m/sec - MV E:A ratio 0.7 ratio - LV septal e' Vmax 0.07 m/sec - LV lateral e' Vmax 0.07 m/sec - LV E:e' septal ratio 5.7 ratio - LV E:e' lateral ratio 5.7 ratio - Name Value Normal Range AV Vmax 1.2 m/sec - AV VTI 26 cm - AV peak gradient 5 mmHg - AV mean gradient 3 mmHg - LVOT Vmax 0.8 m/sec - LVOT VTI 16 cm - LVOT peak gradient 3 mmHg - LVOT mean gradient 2 mmHg - DAVID Vmax 0.3 m/sec - Name Value Normal Range TR Vmax 2.3 m/sec - TR peak gradient 21 mmHg - RAP 3 mmHg - RVSP 24 mmHg - IVC diameter 1.8 cm - Name Value Normal Range PV Vmax 0.9 m/sec - PV peak gradient 3 mmHg -
[2018-06-24] MEDS: NS 0.9% 1000 ML* 1,000 ML IV SCH (11:56)
--- NOTE | 2018-06-24 15:43 | PN ---
Progress Note - Progress Note Date of Service: 06/24/18 Note: Patient admitted this AM for syncopal episode On arrival to floor was found to be significantly orthostatic - 1L NS bolus ordered and IVFs at 100 cc/hr. Patient denies SOB or CP. States he has been having a cough. Appears drowsy. Lung sounds: b/l diffuse rhonchi with expiratory wheezing, poor aeration CTA: Several abnormalities - ?bronchiolitis vs aspiration Echo: EF depressed slightly to 40-45% Plan Dr. Graves to see. Continue Zosyn and IVFs - Will start prednisone 40 mg QD and duonebs as well as albuterol Will order speech therapy - swallow eval D/C Lisinopril in setting of orthostatic hypotension PT consult as well
[2018-06-24] MEDS: predniSONE TAB* 20 MG PO SCH (17:29)
--- NOTE | 2018-06-24 19:16 | CONS ---
PULMONARY CONSULTATION REPORT: DATE OF CONSULT: 06/24/18 CONSULTATION REQUESTED BY: Sade Key MD REASON FOR CONSULT: Evaluation of abnormal CT chest. HISTORY OF PRESENT ILLNESS: The patient is an 83-year-old male poor historian, given history of dementia. The patient is a former smoker with prior history of COPD, AAA, coronary artery disease, hypertension, fuentes's lung, who presents to the hospital after a presyncopal episode. As per admission records , the patient stood up to go to the bathroom and after the few steps, he felt lightheaded and near syncopal episode. No loss of consciousness. was able to catch the patient and he did not hit his head or have any trauma as a result. No back pain, neck pain, or headaches. The patient denies fevers or chills recently. The patient reports cough productive of thick phlegm. The patient reports that he swallows the phlegm, so he is not sure what color it is. Denies chest pain, palpitations, loss of weight or appetite. 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 The patient was diagnosed with pneumonia a week ago and has been having generalized weakness since. The patient had further evaluation with CTA of the chest. I personally reviewed the images. The patient with evidence of airspace opacities bilaterally with a nodular and tree-in-bud pattern. He has significant nodular opacities in the right lower lobe and also with areas of dense consolidation scattered. No significant mediastinal adenopathy was seen. There is evidence of mild scarring in the upper lobes in the apex area. Multiple subcentimeter pulmonary nodules were also seen. He has evidence of mild bronchiectasis and mucus plugging in lower lobes. No evidence of pulmonary embolism was seen. Echocardiogram showed evidence of mild to moderately decreased LV systolic function, EF of 40% to 45%, evidence of diastolic dysfunction. RVSP was not measured. The patient also with mildly elevated white count and left shift. Troponins were within normal limits. Pulmonary consultation was requested given abnormal CT. I personally reviewed. I have seen patient and examined at bedside. Drake historian reports improvement in shortness of breath. Has intermittent cough, has not been coughing during the interview. He is on O2 supplementation at 2 L per minute with O2 saturation is 99%. 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 He was also started on nebulizers. He was also started on broad-spectrum antibiotics. PAST MEDICAL HISTORY: 1. COPD. 2. AAA. 3. Coronary artery disease. 4. Hypertension. 5. Dementia. 6. Fuentes's lung. PAST SURGICAL HISTORY: Appendectomy. MEDICATIONS AT HOME: 1. Trazodone. 2. Bupropion. 3. Quetiapine. 4. Montelukast. 5. Lisinopril. 6. Advair. 7. Donepezil. 8. Escitalopram. 9. Atorvastatin. 10. Aspirin. 11. Albuterol inhaler and nebulizer. ALLERGIES: ZOLPIDEM. FAMILY HISTORY: Reviewed, noncontributory to current admission. SOCIAL HISTORY: Former smoker, quit few years ago. No alcohol or drug abuse. REVIEW OF SYSTEMS: Attempted all 14-system review, given the patient being poor historian, not much could be obtained. Pertinent positives and negatives in HPI. PHYSICAL EXAM: The patient is lying in bed, in no apparent distress. Vital Signs: Temperature 98.1, pulse 66 beats per minute, respirations 18 per minute, O2 sat 99% on 2 L, blood pressure 129/77. HEENT: Pupils equal, reactive to light. Mucous membranes moist. Lungs: Diminished air entry bilaterally, scattered wheeze and rhonchi present. Cardiovascular: S1, S2 present and regular. Abdomen: Soft, nontender, nondistended. Bowel sounds present. Extremities: Normal range of motion. Skin: No rash. Neuro: Alert, awake, and oriented; however, not able to provide much history due to underlying dementia. No focal deficits. DIAGNOSTIC STUDIES/LAB DATA: WBC count 11.1, hemoglobin 14.7, hematocrit 45, platelet count of 205. Sodium 138, potassium 4.7, chloride 104, bicarb 29, BUN 21, creatinine 1.59. Lactic acid within normal limits. Troponin x2 within normal limits. BNP normal. CT as described above in HPI. IMPRESSION AND RECOMMENDATIONS: 83-year-old male with history of fuentes's lung , prior occupational exposures to chemical., admitted with generalized malaise, was recently treated as outpatient for pneumonia. The patient was admitted for evaluation of abnormal CT, which could be indicative of pneumonia, viral versus bacterial. The patient also appears to be having an acute chronic obstructive pulmonary disease exacerbation. He has tree-in-bud opacities and areas of larger nodule likely suggestive of consolidation. He also has mucus plugging in airways. I think these findings are less concerning for malignancy. I suspect aspiration episodes given history of gastroesophageal reflux disease, could be chemical pneumonitis also. Agree with current antibiotic choice given concern with aspiration. Continue with bronchodilators q.4 hours as needed. The patient started on Dulera, takes Advair at home. He would also need aggressive pulmonary toilet as there is evidence of mucus being trapped in the lower lung zones. The patient does not have strong cough and is unable to completely follow the instructions. Hopefully, the nebulizers would help him get the secretions coughed out. No intervention needed for the nodular opacities in the lungs. Would recommend followup CT chest in 3 to 4 months to ensure resolution. Thank you for allowing me to participate in the care of your patient. Will follow up with you. [id number]/[facility] #: [id number] KIRSTEN
[2018-06-24] MEDS: Heparin VIAL(*) 5000 UNITS/ML VIAL (FIVE THOUSAND) SUBCUT SCH (23:12)
[2018-06-25] MEDS: Piperacillin/Tazobac ADVAN(*) 3.375 GM in NS 0.9% 100 ML* 100 ML IVPB SCH ×2 (03:10→11:03)
[2018-06-25] MEDS: Heparin VIAL(*) 5000 UNITS/ML VIAL (FIVE THOUSAND) SUBCUT SCH ×2 (06:24→13:23)
[2018-06-25 06:52] LABS: ABS Basophils 0 10^3/ul (0-0.2); ABS Eosinophils 0 10^3/ul (0-0.6); ABS Lymphocytes 0.8 10^3/ul (1.0-4.8); ABS Monocytes 0.1 10^3/ul (0-0.8); ABS Neutrophils 4.5 10^3/ul (1.5-7.7); ABS Nucleated RBC 0 10^3/ul; Eosinophil % 0.1 %; Hematocrit 39 % (42-52); Hemoglobin 13.3 g/dl (14.0-18.0); Lymphocyte % 14.5 %; Mean Corpuscular HGB Conc 34 g/dl (31-36); Mean Corpuscular Hemoglobin 30 pg (27-31); Mean Corpuscular Volume 89 fL (80-94); Mean Platelet Volume 7.8 fL (7.4-10.4); Nucleated Red Blood Cells % 0; Platelet Count 204 10^3/ul (150-450); Red Blood Count 4.43 10^6/ul (4.00-5.40); Red Cell Distribution Width 13 % (10.5-15); White Blood Count 5.5 10^3/ul (3.5-10.8)
[2018-06-25 07:02] LABS: BUN/Creatinine Ratio 11.8 (8-20); Calcium 8.4 mg/dL (8.6-10.3); EGFR African American 70.6 (>60); EGFR Non-African American 58.4 (>60); Magnesium 1.8 mg/dL (1.9-2.7); Potassium 4.2 mmol/L (3.5-5.0)
[2018-06-25] MEDS: Mometasone/Formoter 200/5 MDI INH SCH (07:53)
[2018-06-25] MEDS ORDERED: Magnesium Sulfate 1 GM IV* 1 GM/100 ML BAG IV ONE (08:46)
[2018-06-25] MEDS: Atorvastatin* 40 MG TAB PO SCH (09:03)
[2018-06-25] MEDS: Citalopram TAB* 40 MG PO SCH (09:03)
[2018-06-25] MEDS: BuPROPion XL* 150 MG TAB.XL PO SCH (09:03)
[2018-06-25] MEDS: NS 0.9% 1000 ML* 1,000 ML IV SCH (09:03)
[2018-06-25] MEDS: Donepezil TAB* 5 MG PO SCH (09:04)
[2018-06-25] MEDS: Montelukast Sodium TAB* 10 MG PO SCH (09:04)
[2018-06-25] MEDS: Aspirin EC TAB* 325 MG PO SCH (09:04)
[2018-06-25] MEDS: predniSONE TAB* 20 MG PO SCH (09:04)
[2018-06-25 12:07] LABS: C Reactive Protein 18.3 mg/L (<8.01)
[2018-06-25 15:41] VITALS: BP 134/83
--- NOTE | 2018-06-25 20:03 | PN ---
Progress Note - Progress Note Date of Service: 06/25/18 - Pulm f/u note Note: Pt seen and examined at bedside. Pt reports improvement in SOB, cough. Pt denies any other complaints. Vital Signs Temp Pulse Resp BP Pulse Ox 98.3 F 71 16 134/83 94 06/25/18 15:15 06/25/18 15:15 06/25/18 15:15 06/25/18 15:15 06/25/18 15:15 Laboratory Results - last 24 hr 06/25/18 06/25/18 05:54 05:54 WBC 5.5 RBC 4.43 Hgb 13.3 L Hct 39 L MCV 89 MCH 30 MCHC 34 RDW 13 Plt Count 204 MPV 7.8 Neut % (Auto) 82.5 Lymph % (Auto) 14.5 [place] % (Auto) 2.4 Eos % (Auto) 0.1 Baso % (Auto) 0.5 Absolute Neuts (auto) 4.5 Absolute Lymphs (auto) 0.8 L Absolute Monos (auto) 0.1 Absolute Eos (auto) 0 Absolute Basos (auto) 0 Absolute Nucleated RBC 0 Nucleated RBC % 0 Sodium 137 Potassium 4.2 Chloride 106 Carbon Dioxide 24 Anion Gap 7 BUN 14 Creatinine 1.19 H Est GFR ( Amer) 70.6 Est GFR (Non-Af Amer) 58.4 BUN/Creatinine Ratio 11.8 Glucose 141 H Calcium 8.4 L Magnesium 1.8 L C-Reactive Protein 18.30 H O/E: Pt lying in bed in NAD HEENT: PERRLA Lungs:Diminished air entry, no wheeze CVS: S1, S+ Abd: Soft, BS+ Ext: Normal ROM Neuro: ALert, awake I/R: 83 y o m, former smoker,with h/o COPD, farmers lung, dementia a/w generalized malaise, found to have air space opacities, scattered nodular opacities with tree-in-bud appearance and more consolidated nodules in RLL CT findings - most likely suggestive of PNA, less likely to be malignancy Treated for PNA Will f/u with rpt CT in 2-3 months, if opacities persist will need to investigate further with biopsy c/w bronchodilators For d/c today
--- NOTE | 2018-06-26 01:43 | DS ---
DISCHARGE SUMMARY: DATE OF ADMISSION: 06/24/18 DATE OF DISCHARGE: 06/25/18 ADMITTING PHYSICIAN: Angei Mcconnell MD PRIMARY CARE PHYSICIAN: Ann-Marie Gaytan MD. ATTENDING PHYSICIAN ON THE DAY OF DISCHARGE: Angel Acosta MD CONSULTING [employer] OPERATOR: Ariana Graves MD CHIEF COMPLAINT: Near syncopal episode; generalized weakness. PRINCIPAL DIAGNOSIS: Orthostatic hypotension in the setting of continued concern for pneumonia with high suspicion for aspiration pneumonia; combined diastolic and systolic congestive heart failure, not in acute exacerbation; acute kidney injury and dehydration in the setting of recent pneumonia. HISTORY OF PRESENT ILLNESS AND HOSPITAL COURSE: Aries Kam is an 83-year- old male with past medical history of tong's lung, COPD, AAA, coronary artery disease, hypertension, dementia, and recently diagnosed with pneumonia (it seems like he was given Augmentin on 06/07/18), please see H and P by Dr. Angie Mcconnell for full details. He stood up to go to the bathroom, and after a few steps, he had a near syncopal episode. The was able to catch the patient and he had no loss of consciousness, did not hit his head. Initial evaluation was significant for slight leukocytosis of 11.1, creatinine of 1.59, specific gravity of urine of 1.046, and was found to be markedly orthostatic with blood pressure dropping from 114/78 while sitting with a heart rate of 74 to 68/47 with a heart rate of 102 while standing, at which point his eyes closed and his legs started to buckle. He was given 3 L of IV fluid at that point in time. His initial chest x-ray had impression of patchy airspace disease of the right mid lung and linear atelectasis of the left lower lung. He had a chest angiogram with multiple abnormalities: 1. No pulmonary embolism. 2. Development of irregular opacities in the right lower lobe measuring up to 3.7 cm since the prior CT scan of 11/30/13. 3. Development of tree-in-bud opacities in both lungs since the prior CT scan which may indicate infectious bronchiolitis, aspiration bronchiolitis, or follicular bronchiolitis. 4. Mucus plugging in the right lower lobe, lingula, and left lower lobe bronchi , and mild atelectasis or consolidation in the inferior lingula. 5. Dilated ascending aorta which is similar in appearance to prior CT scan of 11/30/13. 6. Infrarenal abdominal aortic aneurysm which was also present on prior scan . No rupture identified from the images obtained. 7. Chronic compression deformities at T2, T3, T6, T7, T9, T11, L1, and L2 which are fairly similar in appearance compared to prior CT of 11/30/13. Because of these multiple lung abnormalities, Dr. Graves from Pulmonology was consulted. Her impression was that the CT abnormalities are likely indicative of pneumonia (viral versus bacterial) and likely component of acute COPD exacerbation. The findings were less concerning for malignancy and she suspected aspiration episodes given the history of GERD versus chemical pneumonitis. The patient was started on Zosyn on admission, bronchodilators, Dulera, and prednisone were given. He had a transthoracic echocardiogram with ejection fraction of 40% to 45%, diastolic dysfunction, trace to mild aortic regurgitation, trace mitral regurgitation, trace to mild tricuspid regurgitation , mild dilation of the ascending aorta. Compared to 10/18/10 study, left ventricular function was lower. No change in the valvular structures. The patient had negative MRSA nares, negative legionella and Strep pneumoniae urine antigens. Blood cultures have been negative x1 day. He was afebrile throughout the course. His blood pressures improved after the fluid bolus, as did his creatinine with a second day creatinine of 1.19. His creatinine on 09/19 was 1.58 of note. His CRP was 18.3. He had negative troponin x2. He worked with Physical Therapy and was able to ambulate around the unit with contact guard assistance using a walker. He is being discharged home with oral antibiotics, inhalers, steroids, and outpatient physical therapy orders. He should of note get a repeat CT scan in 2 to 3 months to confirm that the opacities have resolved, otherwise a biopsy will be needed for further investigation to rule out malignancy. The patient also had acute hypoxic respiratory failure with initial sats 89% on room air, and by the day of discharge was satting 94% to 96% on room air after being weaned off maximum 3 L supplemental oxygen. DISCHARGE MEDICATIONS: Include: 1. Ventolin HFA inhaler 2 puffs q.4 hours p.r.n. 2. Albuterol inhaler q.4 hours p.r.n. 3. Augmentin 875 mg p.o. b.i.d. for 7 days. 4. Aspirin 81 mg daily (reduced dose from 324). 5. Lipitor 40 mg p.o. daily. 6. Bupropion 150 mg p.o. daily. 7. Celexa 40 mg p.o. daily. 8. Aricept 5 mg p.o. daily. 9. Advair Diskus 1 puff inhaled b.i.d. 10. Lisinopril 2.5 mg p.o. daily (reduced from prior 5 mg daily). 11. Singulair 10 mg daily. 12. Prednisone 40 mg daily for 5 days. 13. Quetiapine 100 mg p.o. q.h.s. 14. Trazodone 150 mg p.o. q.h.s. FOLLOWUP: The patient should follow up with Dr. Gaytan within 4 to 7 days and should get a CT scan of his chest within 2 to 3 months to confirm opacities have resolved and no need for further biopsy to rule out malignancy. Blood cultures have been no growth for 1 day but should be followed up on. He was not able to provide a sputum sample. TIME SPENT ON DISCHARGE: 40 minutes. [id number]/[facility] #: [id number] KIRSTEN
== END 2018-06-25 16:30 | disposition home or self-care (01) ==
LOC: ED 01:51 → INTOOBSV 05:27 → MED 05:27
PROVIDERS: ADMIT Internal Medicine; ATTEND Internal Medicine
DX: R55 Syncope and collapse (principal); R53.1 Weakness; I95.1 Orthostatic hypotension; J18.9 Pneumonia, unspecified organism; I50.42 Chronic combined systolic (congestive) and diastolic (congestive) heart failure; N17.9 Acute kidney failure, unspecified; E86.0 Dehydration; Z79.82 Long term (current) use of aspirin; J44.9 Chronic obstructive pulmonary disease, unspecified; I71.4 Abdominal aortic aneurysm, without rupture; I25.10 Atherosclerotic heart disease of native coronary artery without angina pectoris; I10 Essential (primary) hypertension; I25.2 Old myocardial infarction; K21.9 Gastro-esophageal reflux disease without esophagitis; R91.8 Other nonspecific abnormal finding of lung field; F03.90 Unspecified dementia, unspecified severity, without behavioral disturbance, psychotic disturbance, mood disturbance, and anxiety; Z87.891 Personal history of nicotine dependence; R53.83 Other fatigue
CPT/HCPCS: 36415; 71045; 71275; 80048; 80053; 81003; 82550; 83605; 83735; 83880; 84443; 84484; 85025; 85610; 85730; 86140; 87040; 87641; 87899; 93005; 93306; 94640; 96361; 96365; 96366; 96372; 99284; A9270-GY; G0378; G8978-GP-CI; G8979-GP-CH; J1644; J1650; J2543; J3475; J7512

== ENCOUNTER 2018-10-26 15:02 | Emergency (ER) | payer MEDICARE, MEDICAID ==
[2018-10-26 15:12] VITALS: BP 109/75
[2018-10-26] MEDS ORDERED: Fluorescein Sodium TOPICAL* 1 MG TEST STRIP OPHTHALMIC ONE (15:17)
[2018-10-26] MEDS ORDERED: Tetracaine 0.5% OPTH.SOL 4 ML* 1 DROP BTL LEFT EYE ONE (15:23)
[2018-10-26] MEDS ORDERED: Eye Irrigation Solution 30 ML BOTTLE LEFT EYE ONE (15:23)
--- NOTE | 2018-10-26 15:24 | UC ---
Eye Complaint HPI - HPI Summary HPI Summary: 83 y/o male presents to the urgent care accompany by grandson c/o he feels something is in his left eye, probably dust from the road since yesterday. He has been w/ nasal yellowish discharge for the past 3 days. Last night he developed yellowish eye drainage. This morning, he woke up w/ moderate left eye crusting green discharge. He states left eye irritation, and denies eye pain. He wears glasses, but usually, he doesn't like to use them. Pt denies fever, photophobia, eye pain, visual changes, CRAIG, dizziness, chest pain, abdominal pain , N/V/D. - History of Current Complaint Chief Complaint: UCEye Stated Complaint: EYE COMPLAINT Time Seen by Provider: 10/26/18 15:22 Hx Obtained From: Patient Onset/Duration: Gradual Onset, Lasting Days - 1 days, Still Present, Worse Since - this morning Timing: Constant Severity Initially: Mild Severity Currently: Mild Pain Intensity: 1 Pain Scale Used: 0-10 Numeric Location of Injury: Conjunctiva - left conjucntiva red w/ moderated sticky green drainage Character: Foreign Body Sensation Aggravating Factor(s): Blinking Alleviating Factor(s): Nothing Associated Signs And Symptoms: Positive: Drainage (Purulent). Negative: Vision Impairment Bilateral, Fever, Swelling - Risk Factors Penetrating Injury Risk Factor: Negative Globe Rupture Risk Factors: Negative Acute Glaucoma Risk Factors: Negative Optic Artery Occlusion Risk Factors: Negative - Allergies/Home Medications Allergies/Adverse Reactions: Allergies Allergy/AdvReac Type Severity Reaction Status Date / Time zolpidem Allergy See Comment Verified 10/26/18 15:12 Home Medications: Home Medications Tamsulosin CAP* [Flomax CAP*] 0.4 mg PO DAILY 10/26/18 [History Confirmed ] buPROPion TAB* [Wellbutrin TAB*] 75 mg PO BID 10/26/18 [History Confirmed ] PMH/Surg Hx/FS Hx/Imm Hx Previously Healthy: Yes Endocrine History: Dyslipidemia Cardiovascular History: Cardiac Disease, Hypertension Respiratory History: COPD, Pneumonia Neurological History: Dementia - Surgical History Surgical History: Yes Surgery Procedure, Year, and Place: 5 CARDIAC STENTS(DOES NOT HAVE CARDS)[facility]. APPENDECTOMY; RT CATARACT - Family History Known Family History: Positive: Hypertension, Other - CVAs (brother) - Social History Occupation: Retired Lives: With Family Alcohol Use: Rare Alcohol Amount: 1 daily Substance Use Type: None Smoking Status (MU): Former Smoker Type: Cigarettes Amount Used/How Often: RECENT CHEWER Length of Time of Smoking/Using Tobacco: "YEARS" When Did the Patient Quit Smoking/Using Tobacco: 40 yrs ago Household Exposure Type: Cigarettes - Immunization History Most Recent Influenza Vaccination: Fall 2017 Most Recent Tetanus Shot: 11/18/07 Most Recent Pneumonia Vaccination: Fall 2017 Review of Systems All Other Systems Reviewed And Are Negative: Yes Constitutional: Positive: Negative Skin: Positive: Negative Eyes: Positive: Drainage - moderate green eye drainage, Eye Redness - left eye redness ENT: Positive: Nasal Discharge - clear Respiratory: Positive: Negative Cardiovascular: Positive: Negative Gastrointestinal: Positive: Negative Genitourinary: Positive: Negative Motor: Positive: Negative Neurovascular: Positive: Negative Musculoskeletal: Positive: Negative Neurological: Positive: Negative Psychological: Positive: Negative Is Patient Immunocompromised?: No Physical Exam - Summary Physical Exam Summary: Vital Signs Reviewed: Yes General: Well appearing, well nourished old male in no apparent pain or respiratory distress Eyes: Positive: left Conjunctiva Inflamed - Visual acuity: WNL,Visual son: full to confrontation. PERRLA, EOMI intact w/out limitation or complaint of pain. eyelashes w/ moderated green draiange. No ciliary flush. No chemosis, No photophobia. Normal fundoscopic exam; no proptosis, exophthalmos, nystagmus. No FB observed w/ the naked eye. ENT: Positive: Normal ENT inspection, Hearing grossly normal, Pharynx normal, Nasal congestion, Nasal drainage - clear, TMs normal - B/L external ear canal clear , TM's WNL. Negative: Tonsillar swelling, Tonsillar exudate Neck: Positive: Supple, Nontender, No Lymphadenopathy Respiratory: Positive: Chest nontender, Lungs clear, Normal breath sounds, No respiratory distress Cardiovascular: Positive: RRR, No Murmur, Pulses Normal, Brisk Capillary Refill Abdomen Description: Positive: Nontender, No Organomegaly, Soft. Negative: CVA Tenderness (R), CVA Tenderness (L) Bowel Sounds: Positive: Present Musculoskeletal: Positive: Strength Intact, ROM Intact, No Edema Neurological Exam: Normal Psychological Exam: Normal Skin Exam: Normal Triage Information Reviewed: Yes Vital Signs: Initial Vital Signs Temp 98.2 F 10/26/18 15:08 Pulse 95 10/26/18 15:08 Resp 16 10/26/18 15:08 BP 109/75 10/26/18 15:08 Pulse Ox 97 10/26/18 15:08 Eye Complaint Course/Dx - Course Course Of Treatment: 83 y/o male presents to the urgent care accompany by donita c/o he feels something is in his left eye, probably dust from the road since yesterday. He has been w/ nasal yellowish discharge for the past 3 days. Last night he developed yellowish eye drainage. This morning, he woke up w/ moderate left eye crusting green discharge. He states left eye irritation, and denies eye pain. He wears glasses, but usually, he doesn't like to use them. Pt denies fever, photophobia, eye pain, visual changes, CRAIG, dizziness, chest pain, abdominal pain , N/V/D. Hx obtained. Pt w/ left eye bacterial conjunctivitis w/o any FB observed on examination w/ the naked eye. Pt is hemodynamically stable, A&OX3, 2 drops of Tetracaine optha drops placed on Pts left eye, then irrigated with saline drops to flush any foreign particles, and all the green discharged was removed. Pt felt better. then fluorescein instillation and examination with a UV lamp. No corneal abrasion observed. No foreign body identified. After procedure Pt felt better. Pt Rx Ciprofloxacin ophthalmic drops and advised to f /u at [facility] [place] in 2-3 days to make sure symptoms are improving and for further evaluation due to patient age. D/c instructions explained. Grandson and Pt understood and agreed w/ plan of care. - Differential Dx/Diagnosis Differential Diagnosis/HQI/PQRI: Conjunctivitis, Foreign Body, Glaucoma, Penetrating Injury, Periorbital Cellulitis, Orbital Cellulitis, Uveitis Provider Diagnosis: Acute bacterial conjunctivitis of left eye Discharge - Sign-Out/Discharge Documenting (check all that apply): Patient Departure - D/C home All imaging exams completed and their final reports reviewed: No Studies - Discharge Plan Condition: Stable Disposition: HOME Prescriptions: Ciprofloxacin 0.3% OPTH.DAYANARA* [Cipro 0.3% Opth*] 1 drop LEFT EYE Q2H #1 btl Patient Education Materials: Conjunctivitis (ED) Referrals: Crepet,Ann-Marie, MD [Primary Care Provider] - 2 Days Delfin Anne MD [Medical Doctor] - 2 Days Additional Instructions: 1-Please apply ophthalmic drops as instructed and finish the full course of treatment to avoid recurrent infection. Encourage hand washing to avoid spread to the other eye. wash your face w/ water and baby Carlyle shampoo 2X day 2-Please f/u with alumni relations coordinator Dr De Jesus in 2-3 days to make sure symptoms are improving and further evaluation and treatment. nt - Billing Disposition and Condition Condition: STABLE Disposition: Home - Attestation Statements Provider Attestation: I was available for consult. This patient was seen by the [facility]. The patient was not presented to, seen by, or examined by me. -Kylee
== END 2018-10-26 16:00 | disposition home or self-care (01) ==
LOC: UCEAST 15:02
DX: H10.32 Unspecified acute conjunctivitis, left eye (principal); B96.89 Other specified bacterial agents as the cause of diseases classified elsewhere; R09.89 Other specified symptoms and signs involving the circulatory and respiratory systems; J44.9 Chronic obstructive pulmonary disease, unspecified; Z88.8 Allergy status to other drugs, medicaments and biological substances; Z87.891 Personal history of nicotine dependence
CPT/HCPCS: 99212; A9270-GY; G0463

== ENCOUNTER 2018-11-08 19:25 | Inpatient (IN) | payer MEDICAID, MEDICARE ==
[2018-11-08] MEDS ORDERED: NS 0.9% 1000 ML** 1,000 ML IV ONE (19:30)
--- NOTE | 2018-11-08 19:38 | ED ---
Altered Mental Status - HPI Summary HPI Summary: This patient is an 83 year old male brought in by EMS presenting to [facility] with a chief complaint of confusion and weakness last night. His says he was walking around in circles confused when he urinated on the floor and landed on his back and shoulders. She states changes in frequency in urination and cough. The patient denies he is in any pain, however states he has mild SOB. The patient has a Hx of dementia. - History Of Current Complaint Stated Complaint: FALL/WEAKNESS PER EMS Time Seen by Provider: 11/08/18 19:30 Hx Obtained From: Patient, Family/Combination Worker Onset/Duration: Still Present Timing: Constant Character: Confusion - Allergies/Home Medications Allergies/Adverse Reactions: Allergies Allergy/AdvReac Type Severity Reaction Status Date / Time zolpidem Allergy See Comment Verified 10/26/18 15:12 PMH/Surg Hx/FS Hx/Imm Hx Endocrine/Hematology History: Denies: Hx Diabetes Cardiovascular History: Reports: Hx Hypertension - ON MEDS Denies: Hx Pacemaker/ICD Respiratory History: Reports: Hx Asthma Denies: Hx Chronic Obstructive Pulmonary Disease (COPD) History: Reports: Other Problems/Disorders - 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 APPENDECTOMY; RT CATARACT Hx Anesthesia Reactions: No Infectious Disease History: Denies: History Other Infectious Disease, Traveled Outside the [place] in Last 30 Days - Family History Known Family History: Positive: Hypertension, Other - CVAs (brother) - Social History Alcohol Use: Rare Alcohol Amount: 1 daily Hx Substance Use: No Substance Use Type: Reports: None Hx Tobacco Use: Yes Smoking Status (MU): Former Smoker Type: Cigarettes Amount Used/How Often: RECENT CHEWER Length of Time of Smoking/Using Tobacco: "YEARS" Review of Systems Positive: Shortness Of Breath, Cough Positive: frequency Neurological: Other - Altered mental status/confusion Positive: Weakness All Other Systems Reviewed And Are Negative: Yes Physical Exam - Summary Physical Exam Summary: Appearance: well appearing, no pain distress Skin: warm, dry, reflects adequate perfusion Head/face: normal Eyes: EOMI, PERRL ENT: mucous membranes moist Neck: supple, non-tender Respiratory: CTA, breath sounds present. Tachypnic. Diminished in both bases, fine wheeze in the right base. Cardiovascular: RRR, pulses symmetrical. No peripheral edema. Abdomen: non-tender, soft. No bladder distension. Bowel Sounds: present Musculoskeletal: normal, strength/ROM intact. Moves all extremities without pain. No neck pain. Neuro: normal, sensory motor intact, A&Ox3 Triage Information Reviewed: Yes Vital Signs On Initial Exam: Temp Pulse Resp BP Pulse Ox 98.8 F 145 38 127/99 99 11/08/18 19:32 11/08/18 19:32 11/08/18 19:32 11/08/18 19:32 11/08/18 19:32 Vital Signs Reviewed: Yes Diagnostics - Vital Signs Temp Pulse Resp BP Pulse Ox 98.8 F 145 12 127/99 99 11/08/18 19:32 11/08/18 19:32 11/08/18 19:39 11/08/18 19:32 11/08/18 19:32 - Laboratory Result Diagrams: 11/08/18 20:02 11/08/18 20:02 Lab Statement: Any lab studies that have been ordered have been reviewed, and results considered in the medical decision making process. - Radiology CXR Radiology Interpretation Completed By: ED Physician Summary of Radiographic Findings: Left upper lobe infiltrate. Adelectasis left lower lobe. Improved right mid lung infiltrate from June 2018. Pending official radiologist report. - CT Brain CT Interpretation Completed By: Radiologist Summary of CT Findings: No acute intracranial findings. Age-related atrophy and chornic white matter ischemic change. ED Provider has reviewed this report. - EKG 1940 Cardiac Rate: Tachycardia Summary of EKG Findings: Narrow complex tachycardia at 143 BPM. Regular rhythm, normal axis, nonspecific ST-wave changes. SVT versus sinus tachycardia. Re-Evaluation - Re-Evaluation First Eval Re-Evaluation Time: 20:34 Comment: Heart rate down to 105 BPM, irregular rhythm with flutter waves. Altered Mental Statu Course/Dx - Course Course Of Treatment: Nurses' notes reviewed. Patient presents with low blood pressure by EMS, tachycardia, tachypnea with delirium superimposed on dementia. It appears he has a left upper lobe infiltrate on a chronically difficult to read x-ray. His tachycardia appears to be in SVT possibly atrial flutter. His rate was improved with diltiazem and he was started on a drip. He received 30 mL per kilogram of IV fluid resuscitation and IV antibiotics for his pneumonia. A Madrid catheter was placed and he will be admitted by the hospitalist to the ICU. - Diagnoses Differential Diagnosis/HQI/PQRI: Intracranial Bleed, Medication Reaction, Metabolic Disorder, Sepsis Provider Diagnoses: Pneumonia, Sepsis, Acute renal failure, Rapid atrial fibrillation - Provider Notifications Discussed Care Of Patient With: Melany Veras - Hospitalist Time Discussed With Above Provider: 20:47 Instructed by Provider To: Admit As Inpatient - Critical Care Time Critical Care Time: 30-74 min - 30 minutes. CCT is EXCLUSIVE of separately billable procedures. Discharge - Sign-Out/Discharge Documenting (check all that apply): Patient Departure - Admission - Discharge Plan Condition: Critical Disposition: ADMITTED TO [facility] - Billing Disposition and Condition Condition: CRITICAL Disposition: Admitted to [facility] - Attestation Statements Document Initiated by Scribe: Yes Documenting Scribe: Kushal Rodriguez Provider For Whom Scribe is Documenting (Include Credential): Sathya Whitfield MD Scribe Attestation: Kushal Hernandez, scribed for Sathya Whitfield MD on 11/08/18 at 2305. Scribe Documentation Reviewed: Yes Provider Attestation: The documentation as recorded by the Kushal corona accurately reflects the service I personally performed and the decisions made by , Sathya Whitfield MD Status of Scribe Document: Viewed
[2018-11-08] MEDS ORDERED: Diltiazem IV push/loading dose 5 MG/ML 5 ML vial (25 mg) IV SLOW PU ONE (19:51)
[2018-11-08] MEDS ORDERED: NS 0.9% IV ONE (20:00)
[2018-11-08] MEDS ORDERED: cefTRIAXone(*) 1 GM in NS 0.9% 50 ML* 50 ML IVPB ONE (20:03)
[2018-11-08] MEDS ORDERED: Azithromycin IV(*) 500 MG in NS 0.9% 250 ML* 250 ML IVPB ONE (20:03)
[2018-11-08] MEDS ORDERED: Azithromycin 500 mg/250 ml NS 500 MG/250 ML BAG IVPB ONE (20:09)
[2018-11-08 20:11] LABS: Hematocrit 43 % (42-52); Hemoglobin 14.2 g/dL (14.0-18.0); Mean Corpuscular HGB Conc 33 g/dL (31-36); Mean Corpuscular Hemoglobin 30 pg (27-31); Mean Corpuscular Volume 89 fL (80-94); Mean Platelet Volume 7.3 fL (7.4-10.4); Platelet Count 233 10^3/uL (150-450); Red Blood Count 4.77 10^6 /uL (4.18-5.48); Red Cell Distribution Width 13 % (10-15); White Blood Count 18.3 10^3/uL (3.5-10.8)
[2018-11-08] MEDS ORDERED: Azithromycin 500 mg/250 mL NS BAG IVPB ONE (20:15)
[2018-11-08 20:16] LABS: INR 1.2 (0.82-1.09)
[2018-11-08 20:28] LABS: ALT 10 U/L (7-52); AST 14 U/L (13-39); Albumin 3.3 g/dL (3.2-5.2); Albumin/Globulin Ratio 0.9 (1-3); Alkaline Phosphatase 82 U/L (34-104); Anion Gap 9 mmol/L (2-11); BUN/Creatinine Ratio 22.3 (8-20); Blood Urea Nitrogen 41 mg/dL (6-24); C Reactive Protein 244.49 mg/L (<8.01); CO2 Carbon Dioxide 23 mmol/L (22-32); Chloride 101 mmol/L (101-111); EGFR African American 42.7 (>60); EGFR Non-African American 35.3 (>60); Globulin 3.5 g/dL (2-4); Glucose 152 mg/dL (70-100); Potassium 4.2 mmol/L (3.5-5.0); Sodium 133 mmol/L (135-145); Total Protein 6.8 g/dL (6.4-8.9)
[2018-11-08 20:31] LABS: Troponin I 0.04 ng/mL (<0.04)
[2018-11-08 20:39] LABS: ABS Lymphocytes 0.9 10^3/ul (1.0-4.8); ABS Monocytes 2.1 10^3/ul (0-0.8); ABS Neutrophils 15.3 10^3/ul (1.5-7.7); Eosinophil % 0.2 %; Lymphocyte % 4.9 %
[2018-11-08] MEDS ORDERED: Diltiazem IV VIAL* 125 MG in NS 0.9% 100 ML* 100 ML IV ONE (20:39)
[2018-11-08 20:54] LABS: TSH (Thyroid Stimulating Horm) 1.86 mcIU/mL (0.34-5.60)
[2018-11-08 21:19] LABS: Urine Appearance Cloudy; Urine Bacteria Absent (Absent); Urine Bilirubin Negative (Negative); Urine Blood 2+ (Negative); Urine Color Yellow; Urine Glucose Negative (Negative); Urine Ketones Negative (Negative); Urine Nitrite Negative (Negative); Urine Protein 2+(100 mg/dL) (Negative); Urine Red Blood Cell 2+(6-10/hpf) (Absent); Urine Specific Gravity 1.021 (1.010-1.030); Urine Urobilinogen Negative (Negative); Urine White Blood Cell Absent (Absent)
[2018-11-08] MEDS ORDERED: NS 0.9% 1000 ML** 1,000 ML IV SCH (21:30)
[2018-11-08] MEDS ORDERED: Ondansetron INJ* 2 MG/ML VIAL IV PRN (21:37)
[2018-11-08] MEDS: methylPREDNISolone SOD 40 MG* 1 ML VIAL IV SCH (22:29)
[2018-11-08] MEDS: Enoxaparin(*) 30 MG/0.3 ML SYR SUBCUT SCH (23:02)
[2018-11-08] MEDS: metroNIDAZOLE IV 500 MG/100ML* 500 MG/100 ML BAG IVPB SCH (23:02)
[2018-11-08] MEDS ORDERED: Morphine INJ* 2 MG/ML 1 ML SYRINGE (TWO MG - NEW SYRINGE VERSION) IV PRN (23:19)
[2018-11-08] MEDS: Acetaminophen TAB* 325 MG PO PRN (23:19)
[2018-11-08] MEDS: Albuterol/Ipratropium NEB.SOL* Albuterol 2.5 MG/Ipratropium 0.5 MG 3 ML INH SCH (23:27)
[2018-11-09 01:21] LABS: Troponin I 0.04 ng/mL (<0.04)
--- NOTE | 2018-11-09 02:05 | HP ---
HISTORY AND PHYSICAL: DATE OF ADMISSION: 11/08/18 PRIMARY CARE PROVIDER: Ann-Marie Gaytan MD GREENSKEEPER: Cheryl Maldonado, the patient's . CODE STATUS: DNR CHIEF COMPLAINT: Altered mental status. SOURCE OF INFORMATION: HPI is obtained from and chart review. Patient is a poor historian secondary to the clinical status of the patient. HISTORY OF PRESENT ILLNESS: 83-year-old man with past medical history of CAD, history of AAA, on surveillance, heart failure with reduced ejection fraction of 40% to 45% in June of 2018, hypertension, dementia, COPD with history also of hypersensitivity pneumonitis, "tong's lung," on p.r.n. home oxygen 2 L nasal cannula and known compression fractures. He is presenting with altered mental status for 1 day. The HPI is limited secondary to the condition of the patient, though his states that starting last night, he seems more confused than baseline and has had worsening cough. He stood up and went to the bathroom and actually got lost going from the bedroom to the bathroom, which is uncommon for him, urinated on himself and then when getting back in bed tripped and fell without loss of consciousness. He went to sleep over the course of the evening, but upon waking up today, he was lethargic, did not feel like eating, and did not recognize his family members, which is not consistent with his baseline, and thus, they decided to call EMS. At baseline, this patient has dementia. He lives with his and step son, who are caregivers, and is independent in his activities of daily living with the exception of bathing and wholly dependent on his independent activities of daily living. He ambulates with a cane at baseline. He is oriented to himself, his family members, and place, although not date or time at baseline. Patients denies any difficulty swallowing, although occasional bouts of choking and has had decreased appetite since June of 2018 where he had been admitted for pneumonia. EMERGENCY ROOM COURSE: In the ER, temperature is 98.8, heart rate is 145 with EKG showing supraventricular tachycardia. After diltiazem 15 mg, rhythm slowed to atrial fibrillation/atrial flutter with rate in the 120s, saturating 99% on 6 L nasal cannula. Blood pressure is 127/99. Chest x-ray is done which shows a patchy air space infiltration in the right mid lung as well as left upper lung patchy airspace disease. Labs were drawn which show leukocytosis to 18 with a left shift. Sodium of 133, creatinine of 1.84, glucose elevated at 152. Troponin of 0.02. BNP 344 and CRP greater than 200. Lactic acid is 1.7. Diltiazem 15 was given and then a drip was started at rate of 5, received 2.3 L of fluids, ceftriaxone, and azithromycin and the hospitalist team was asked to evaluate. PAST MEDICAL HISTORY: CAD with distant history of [place] history of AAA, on surveillance heart failure with reduced ejection fraction at 40% to 45%, not on treatment and diagnosed in June of 2018 hypertension; dementia with baseline A and O x2 COPD and history of hypersensitivity pneumonitis, on home p.r.n. oxygen compression fractures. PAST SURGICAL HISTORY: Status post appendectomy. MEDICATIONS: 1. Albuterol 2 puffs inhaled q.4 hours p.r.n. 2. Aspirin 81 mg p.o. daily. 3. Atorvastatin 80 mg p.o. daily. 4. Bupropion 150 mg p.o. daily. 5. Citalopram 40 mg p.o. daily. 6. Donepezil 5 mg p.o. daily. 7. Fluticasone/salmeterol 1 puff inhaled b.i.d. 8. Lisinopril 2.5 mg p.o. daily. 9. Montelukast 10 mg p.o. daily. 10. Quetiapine 100 mg p.o. daily. 11. Tamsulosin 0.4 mg p.o. daily. 12. Trazodone 150 mg p.o. q.h.s. ALLERGIES: ZOLPIDEM. FAMILY HISTORY: Unknown and unable to review with patient secondary to clinical state. 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 He lives with his and her adult son. He has a former tobacco history of up to 20-pack years and has discontinued greater than 15 years ago. He formerly used alcohol daily 2 to 3 units. No history of illicit drug use. REVIEW OF SYSTEMS: Largely unable to be obtained secondary to the clinical status of the patient. Constitutional: denies fever, chills, or malaise. HEENT: Denies headaches, vision complaints, or sore throat. Cardiovascular: Negative for roughly chest pain. Respiratory: Positive for cough and worsening shortness of breath x2 days. GI: Negative for nausea, vomiting, or diarrhea. : Negative for dysuria or hematuria. Musculoskeletal: Negative for new myalgias or arthralgias. Skin: Negative for new rashes or lesions. Neurologic: Positive for altered mental status, but no focal weakness or numbness. Psychiatric: Negative for depression or anxiety. Endocrine: Negative for polyuria or polydipsia. Heme: Negative for easy bruising or bleeding. PHYSICAL EXAMINATION GENERAL APPEARANCE: An ill-appearing elderly man, coughing in bed, in no acute distress and cooperative with exam. VITAL SIGNS: At the time of physical exam, blood pressure is 105/88, saturation 99% on 6 L nasal cannula, heart rate is 120, in atrial fibrillation with rapid ventricular response. HEENT: Pupils are pinpoint, but reactive. Extraocular muscles are intact. Sclerae are anicteric. Mouth has dry mucous membranes. He has upper denture plate. NECK: Supple with no supraclavicular or cervical lymphadenopathy. RESPIRATORY: The patient is tachypneic at rate of 28. He has slight intercostal retractions, has frequent productive cough with yellowish sputum. He has diminished lung sounds to mid lungs bilaterally and faint dry crackles in right mid lung. Faint expiratory wheeze and rhonchi in mid lung son bilaterally. CARDIAC: Regular rate and rhythm. Tachycardic. No appreciable murmur. S1 and S2 identified. ABDOMEN: Belly is mildly distended, but soft and nontender with normoactive bowel sounds. MUSCULOSKELETAL: He moves all four extremities spontaneously. EXTREMITIES: He has 2+ palpable pulses in DP. No edema. : [place] in place. NEUROLOGIC: The patient is cooperative with exam, oriented to himself. No focal neurologic deficits with cranial nerves II through XII intact. SKIN: No evidence of ulcers, rashes, or lesions. DIAGNOSTIC STUDIES/LAB DATA: CBC: Leukocytosis with white blood cell count 18.3, hemoglobin of 14.2, hematocrit of 43, platelets of 233,000. INR 1.2. Sodium 133, potassium 4.2, chloride 101, carbon dioxide 23, BUN 41, creatinine of 1.84, glucose of 152, lactic acid 1.7. AST 14, ALT 10, alkaline phosphatase 82. Troponin 0.04. CRP 244. BNP 358. TSH pending. A1c pending. Urinalysis pending. Chest x-ray shows right patchy airspace disease in mid lung and left upper lobe patchy airspace disease. Head CT shows no acute intracranial pathology. EKG shows supraventricular tachycardia with rate of 130. No repeat has been done at the time of dictation. Telemetry shows atrial fibrillation with rapid ventricular response in the 120s. Imaging, labs, and EKG were reviewed by myself. ASSESSMENT AND PLAN: 83-year-old man with past medical history of distant myocardial infarction and coronary artery disease, heart failure with reduced ejection fraction at 40% to 45% diagnosed in June of 2018, hypertension, dementia, chronic obstructive pulmonary disease, and hypersensitivity pneumonitis, at baseline on as-needed 2 L oxygen, who is presenting with altered mental status for 1 day and found to be septic from pneumonia with new arrhythmia, atrial fibrillation versus atrial flutter and acute kidney injury. 1. Sepsis. He is meeting 3/4 SIRS criteria with pneumonia as source. He is status post a sepsis bolus, ceftriaxone, and azithromycin. Lactic acid is flat at this time with only other evidence of end-organ damage being elevated creatinine. Currently, he has been pancultured and we will continue to follow culture data. Furthermore, we will add metronidazole for concern for aspiration pneumonia given patient's dementia and difficulty swallowing per HPI from . 2. Pneumonia. He has right patchy lung space airway disease on chest x-ray. Last CT scan from June of 2018 where the patient was admitted for the same showed tree-in-bud opacities with an infectious appearance. He has a known history of scarring in bilateral upper lobes from environmental exposures. There was a question of possibility of underlying pulmonary nodules with ? Malignant suspicion, though CT scan read by Pulmonology in June of 2018 felt that this was largely infectious. For now, we will treat as infectious with ceftriaxone, azithromycin, and metronidazole to cover for both community- acquired and aspiration pneumonia and would consider repeat CT scan if no clinical improvement and to evaluate for any other underlying process. 3. History of pneumonitis and chronic obstructive pulmonary disease. The patient has known history of significant scarring and is already on inhalers and p.r.n. oxygen. We will add DuoNeb q.6 hours and prednisone IV for reactive airway component. 4. Atrial flutter/fibrillation. This is new onset. His CHADS-Vasc is greater than 4, although there is no urgency for current anticoagulation. We will continue diltiazem while searching for source control and start drip at 5 and titrate as needed. 5. Acute kidney injury. Most likely, this is prerenal secondary to dehydration with known sepsis. He is status post fluid rehydration and we will continue to monitor with Madrid measuring urine output and we will hold home lisinopril. 6. Heart failure with reduced ejection fraction. He is hypovolemic on exam. We will continue to monitor status post resuscitation. 7. Delirium in the setting of dementia. We will hold Seroquel and trazodone until mental status clears to baseline. 8. History of dementia. The patient is on Wellbutrin, citalopram, donepezil, Seroquel, and trazodone at home with some behavioral disturbances. We will again hold sedating medications and continue home Wellbutrin, citalopram, and donepezil. 9. Coronary artery disease. We will continue home aspirin and atorvastatin. 10. Elevated troponins. He has mildly elevated troponin with no evidence of active ischemia on EKG. Most likely, this is in the setting of demand ischemia with sepsis and new arrhythmia. We will trend troponins and continue to monitor. 11. FEN. The patient is n.p.o. for now with dysphagia screen to be done by nursing; if passes, could consider regular diet. He does have A1c pending for hyperglycemia. 12. DVT prophylaxis. The patient is on low molecular weight heparin at 30 mg for diminished renal clearance. 13. Ambulation status. The patient ambulates with cane at baseline. PT is ordered. 14. Disposition. The patient is stable for admission to the intensive care unit for sepsis, the possibility of hemodynamic instability in the next 24 hours as well as new need for diltiazem drip with possible titration. 15. Code status is DNR TIME SPENT: Forty-five minutes was spent on the planning of this admission with over half of that spent directly at the bedside with the patient providing direct patient care. Plan of care was discussed with the patient's family and they have no further questions. He is stable for the admission to the ICU. [id number]/[facility] #: [id number] KIRSTEN
[2018-11-09] MEDS: methylPREDNISolone SOD 40 MG* 1 ML VIAL IV SCH (05:16)
[2018-11-09 05:31] LABS: ABS Lymphocytes 0.6 10^3/ul (1.0-4.8); ABS Monocytes 0.6 10^3/ul (0-0.8); ABS Neutrophils 15.6 10^3/ul (1.5-7.7); Hematocrit 39 % (42-52); Lymphocyte % 3.6 %; Mean Corpuscular HGB Conc 33 g/dL (31-36); Mean Corpuscular Hemoglobin 30 pg (27-31); Mean Corpuscular Volume 90 fL (80-94); Mean Platelet Volume 7.3 fL (7.4-10.4); Platelet Count 202 10^3/uL (150-450); Red Blood Count 4.32 10^6 /uL (4.18-5.48); Red Cell Distribution Width 13 % (10-15); White Blood Count 16.8 10^3/uL (3.5-10.8)
[2018-11-09 05:48] LABS: Albumin 2.9 g/dL (3.2-5.2); BUN/Creatinine Ratio 23.6 (8-20); Calcium 7.8 mg/dL (8.6-10.3); EGFR African American 54.9 (>60); EGFR Non-African American 45.4 (>60); Indirect Bilirubin 0.3 mg/dL (0.3-1.0); Potassium 4.6 mmol/L (3.5-5.0); Total Bilirubin 0.5 mg/dL (0.2-1.0); Total Protein 5.9 g/dL (6.4-8.9)
[2018-11-09] MEDS: Albuterol/Ipratropium NEB.SOL* Albuterol 2.5 MG/Ipratropium 0.5 MG 3 ML INH SCH ×4 (07:56→19:43)
--- NOTE | 2018-11-09 09:15 | PN ---
Progress Note - Progress Note Date of Service: 11/09/18 - Pulmonary note Note: Pt seen and examined at bedside. Pt was admitted 11/08/18 for evaluation of AMS, cough. 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 Pt was brought for worsening confusion over the past few weeks, was more lethargic and was brought into hospital for further evaluation. He has been eating poorly since he was d/c ed after being treated for PNA in Jun 2018. He was noted to be in A.fib with RVR and was started on Cardizem drip. He was also given 2L IVF. Patient was started on abx for PNA. Patient has chronic renal insufficiency that was stable. He was initiated on 6L O2 which is tapered to his baseline of 2L this am. 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 ROS: Limited given his confusion. Denies any issues this am. Active Medications Generic Name Dose Route Start Last Admin Trade Name Freq PRN Reason Stop Dose Admin Acetaminophen 650 mg 11/08/18 21:36 11/08/18 23:19 Tylenol Tab* PO 650 mg Q6H PRN Administration FEVER/PAIN Albuterol/Ipratropium 1 neb 11/08/18 22:00 11/09/18 07:57 Duoneb (Albuterol 2.5 Mg/Ipratropium 0.5 Mg) INH 1 neb [id number] AWAKE HERRERA Administration Aspirin 81 mg 11/09/18 09:00 Aspirin 81 Mg Chew Tab* PO DAILY HERRERA Atorvastatin Calcium 80 mg 11/09/18 09:00 Lipitor* PO DAILY HERRERA Bupropion HCl 150 mg 11/09/18 09:00 Wellbutrin Xl * PO DAILY HERRERA Citalopram Hydrobromide 10 mg 11/09/18 09:00 Celexa Tab* PO DAILY HERRERA Donepezil HCl 5 mg 11/09/18 09:00 Aricept Tab* PO DAILY HERRERA Enoxaparin Sodium 30 mg 11/08/18 23:00 11/08/18 23:02 Lovenox(*) SUBCUT 30 mg Q24H HERRERA Administration Azithromycin 250 mg/ Sodium 250 mls @ 250 mls/hr 11/09/18 21:00 Chloride IVPB Q24H HERRERA Metronidazole/Sodium Chloride 500 mg in 100 mls @ 100 mls/hr 11/08/18 22:30 11/08/18 23:02 Flagyl 500 Mg Ivpb* IVPB 100 mls/hr Q12H HERRERA Administration Ceftriaxone Sodium 1 gm/ 50 mls @ 200 mls/hr 11/09/18 20:30 Sodium Chloride IVPB Q24H HERR[facility]A Methylprednisolone Sodium Succinate 40 mg 11/10/18 09:00 Solu-Medrol 40 Mg IV DAILY HERRERA Montelukast Sodium 10 mg 11/09/18 09:00 Singulair Tab* PO DAILY [facility] Ondansetron HCl 4 mg 11/08/18 21:37 Zofran Inj* IV Q6H PRN NAUSEA Vital Signs Temp Pulse Resp BP Pulse Ox 96.8 F 69 16 91/66 98 11/09/18 07:00 11/09/18 07:59 11/09/18 07:59 11/09/18 07:00 11/09/18 07:59 O/E: Pt in NAD HEENT: SINDHU, no accessory muscle usage, no JVD Lungs: Diminished air entry, crackles at bases CVS: S1, S2+, irregular Abd: Soft, BS+ Ext: Normal ROM Skin: No rash Neuro: Alert, awake, oriented to place, person Laboratory Results - last 24 hr 11/08/18 11/08/18 11/08/18 20:02 20:02 20:02 WBC 18.3 H RBC 4.77 Hgb 14.2 Hct 43 MCV 89 MCH 30 MCHC 33 RDW 13 Plt Count 233 MPV 7.3 L Neut % (Auto) 83.4 Lymph % (Auto) 4.9 [place] % (Auto) 11.3 Eos % (Auto) 0.2 Baso % (Auto) 0.2 Absolute Neuts (auto) 15.3 H Absolute Lymphs (auto) 0.9 L Absolute Monos (auto) 2.1 H Absolute Eos (auto) 0.0 Absolute Basos (auto) 0.0 Absolute Nucleated RBC 0.0 Nucleated RBC % 0.0 INR (Anticoag Therapy) 1.20 H Sodium 133 L Potassium 4.2 Chloride 101 Carbon Dioxide 23 Anion Gap 9 BUN 41 H Creatinine 1.84 H Est GFR ( Amer) 42.7 Est GFR (Non-Af Amer) 35.3 BUN/Creatinine Ratio 22.3 H Glucose 152 H Hemoglobin A1c Lactic Acid Calcium 9.0 Magnesium 2.0 Total Bilirubin 0.90 Direct Bilirubin Indirect Bilirubin AST 14 ALT 10 Alkaline Phosphatase 82 Troponin I 0.04 H* C-Reactive Protein 244.49 H B-Natriuretic Peptide Total Protein 6.8 Albumin 3.3 Globulin 3.5 Albumin/Globulin Ratio 0.9 L TSH 1.86 Urine Color Urine Appearance Urine pH Ur Specific [place] Urine Protein Urine Ketones Urine Blood Urine Nitrate Urine Bilirubin Urine Urobilinogen Ur Leukocyte Esterase Urine WBC (Auto) Urine RBC (Auto) Urine Bacteria Hyaline Casts Urine Glucose 11/08/18 11/08/18 11/08/18 20:02 20:02 20:02 WBC RBC Hgb Hct MCV MCH MCHC RDW Plt Count MPV Neut % (Auto) Lymph % (Auto) [place] % (Auto) Eos % (Auto) Baso % (Auto) Absolute Neuts (auto) Absolute Lymphs (auto) Absolute Monos (auto) Absolute Eos (auto) Absolute Basos (auto) Absolute Nucleated RBC Nucleated RBC % INR (Anticoag Therapy) Sodium Potassium Chloride Carbon Dioxide Anion Gap BUN Creatinine Est GFR ( Amer) Est GFR (Non-Af Amer) BUN/Creatinine Ratio Glucose Hemoglobin A1c 5.6 Lactic Acid 1.7 Calcium Magnesium Total Bilirubin Direct Bilirubin Indirect Bilirubin AST ALT Alkaline Phosphatase Troponin I C-Reactive Protein B-Natriuretic Peptide 358 H Total Protein Albumin Globulin Albumin/Globulin Ratio TSH Urine Color Urine Appearance Urine pH Ur Specific [place] Urine Protein Urine Ketones Urine Blood Urine Nitrate Urine Bilirubin Urine Urobilinogen Ur Leukocyte Esterase Urine WBC (Auto) Urine RBC (Auto) Urine Bacteria Hyaline Casts Urine Glucose 11/08/18 11/09/18 11/09/18 20:51 00:50 05:22 WBC 16.8 H RBC 4.32 Hgb 13.0 L Hct 39 L MCV 90 MCH 30 MCHC 33 RDW 13 Plt Count 202 MPV 7.3 L Neut % (Auto) 92.4 Lymph % (Auto) 3.6 [place] % (Auto) 3.8 Eos % (Auto) 0.0 Baso % (Auto) 0.2 Absolute Neuts (auto) 15.6 H Absolute Lymphs (auto) 0.6 L Absolute Monos (auto) 0.6 Absolute Eos (auto) 0.0 Absolute Basos (auto) 0.0 Absolute Nucleated RBC 0.0 Nucleated RBC % 0.0 INR (Anticoag Therapy) Sodium Potassium Chloride Carbon Dioxide Anion Gap BUN Creatinine Est GFR ( Amer) Est GFR (Non-Af Amer) BUN/Creatinine Ratio Glucose Hemoglobin A1c Lactic Acid Calcium Magnesium Total Bilirubin Direct Bilirubin Indirect Bilirubin AST ALT Alkaline Phosphatase Troponin I 0.04 H* C-Reactive Protein B-Natriuretic Peptide Total Protein Albumin Globulin Albumin/Globulin Ratio TSH Urine Color Yellow Urine Appearance Cloudy Urine pH 5.0 Ur Specific [place] 1.021 Urine Protein 2+(100 mg/dl) A Urine Ketones Negative Urine Blood 2+ A Urine Nitrate Negative Urine Bilirubin Negative Urine Urobilinogen Negative Ur Leukocyte Esterase Negative Urine WBC (Auto) Absent Urine RBC (Auto) 2+(6-10/hpf) A Urine Bacteria Absent Hyaline Casts Present A Urine Glucose Negative 11/09/18 11/09/18 05:22 05:22 WBC RBC Hgb Hct MCV MCH MCHC RDW Plt Count MPV Neut % (Auto) Lymph % (Auto) [place] % (Auto) Eos % (Auto) Baso % (Auto) Absolute Neuts (auto) Absolute Lymphs (auto) Absolute Monos (auto) Absolute Eos (auto) Absolute Basos (auto) Absolute Nucleated RBC Nucleated RBC % INR (Anticoag Therapy) Sodium 138 Potassium 4.6 Chloride 109 Carbon Dioxide 22 Anion Gap 7 BUN 35 H Creatinine 1.48 H Est GFR ( Amer) 54.9 Est GFR (Non-Af Amer) 45.4 BUN/Creatinine Ratio 23.6 H Glucose 174 H Hemoglobin A1c Lactic Acid 1.1 Calcium 7.8 L Magnesium Total Bilirubin 0.50 Direct Bilirubin 0.20 H Indirect Bilirubin 0.3 AST 13 ALT 9 Alkaline Phosphatase 76 Troponin I C-Reactive Protein B-Natriuretic Peptide Total Protein 5.9 L Albumin 2.9 L Globulin 3.0 Albumin/Globulin Ratio 1.0 TSH Urine Color Urine Appearance Urine pH Ur Specific [place] Urine Protein Urine Ketones Urine Blood Urine Nitrate Urine Bilirubin Urine Urobilinogen Ur Leukocyte Esterase Urine WBC (Auto) Urine RBC (Auto) Urine Bacteria Hyaline Casts Urine Glucose I/R: 83 y o m with h/o COPD, 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 CXR showed air space opacities slightly progressed from Jun 2018 Septic w/u negative to date, pt unable to provide sputum cx Leucocytosis + Decreased Solumedrol to 40mg daily c/w O2 supplementation at 2L/min to kep O2 sat around 92% c/w flutter device c/w nebs Hemodynamically stable, not requiring pressors, lactate is normal Pt is off cardizem drip, rate controlled now He is on anticoagulation for A.fib Troponins mildly elevated from A.fib and sepsis. No acute EKG changes concerning for ischemia H/o dementia with worsening AMS, likely sec to PNA CT brain negative for acute abnormality. He is on meds for dementia and depression ? chocking while eating. Pt will need swallow evaluation. He is currently NPO H/o chronic renal insufficiency, stable. Lisinopril is being held. He has 2+ blood and protein in Urine, needs to be evaluated further. Elevated bl sugars likely sec to steroids, Hb A1C is normal c/w Insulin SS while on steroids. DVT px: Pt on Lovenox Pt stable to be transferred to regular medical floor D/w Dr Thompson.
[2018-11-09] MEDS: Atorvastatin* 80 MG TAB PO SCH (10:39)
[2018-11-09] MEDS: Citalopram TAB* 10 MG PO SCH (10:39)
[2018-11-09] MEDS: Donepezil TAB* 5 MG PO SCH (10:39)
[2018-11-09] MEDS: Aspirin 81 mg CHEW TAB* 81 MG TAB.CHEW PO SCH (10:39)
[2018-11-09] MEDS: Montelukast Sodium TAB* 10 MG PO SCH (10:39)
[2018-11-09] MEDS: metroNIDAZOLE IV 500 MG/100ML* 500 MG/100 ML BAG IVPB SCH ×2 (10:40→23:32)
[2018-11-09] MEDS: BuPROPion XL* 150 MG TAB.XL PO SCH (10:40)
[2018-11-09] MEDS: cefTRIAXone(*) 1 GM in NS 0.9% 50 ML* 50 ML IVPB SCH (21:44)
[2018-11-09] MEDS: Azithromycin IV(*) 250 MG in NS 0.9% 250 ML* 250 ML IVPB SCH (22:20)
[2018-11-09] MEDS: Enoxaparin(*) 30 MG/0.3 ML SYR SUBCUT SCH (23:32)
[2018-11-10] MEDS: Albuterol/Ipratropium NEB.SOL* Albuterol 2.5 MG/Ipratropium 0.5 MG 3 ML INH SCH ×2 (01:00→07:22)
[2018-11-10] MEDS: BuPROPion XL* 150 MG TAB.XL PO SCH (08:01)
[2018-11-10] MEDS: Montelukast Sodium TAB* 10 MG PO SCH (08:01)
[2018-11-10] MEDS: Donepezil TAB* 5 MG PO SCH (08:01)
[2018-11-10] MEDS: Citalopram TAB* 10 MG PO SCH (08:01)
[2018-11-10] MEDS: Atorvastatin* 80 MG TAB PO SCH (08:01)
[2018-11-10] MEDS: Aspirin 81 mg CHEW TAB* 81 MG TAB.CHEW PO SCH (08:01)
[2018-11-10] MEDS: methylPREDNISolone SOD 40 MG* 1 ML VIAL IV SCH (08:01)
[2018-11-10] MEDS ORDERED: Albuterol 2.5 MG/3 ML NEB.SOL* (0.083%) INH PRN (08:13)
--- NOTE | 2018-11-10 09:38 | PN ---
Subjective Date of Service: 11/10/18 Interval History: Admitted to the ICU for pneumonia and atrial fibrillation with RVR. Now transferred to floor on 11/09/18. He has no issues this morning, reports occasional shortness of breath with cough of yellow colored sputum production, no chest pain, no palpitations. tele shows sinus rhythm Objective Active Medications: Acetaminophen (Tylenol Tab*) 650 mg PO Q6H PRN PRN Reason: FEVER/PAIN Last Admin: 11/08/18 23:19 Dose: 650 mg Albuterol (Ventolin 2.5 Mg/3 Ml Neb.Kristi*) 2.5 mg INH Q6H PRN PRN Reason: SOB/WHEEZING Atorvastatin Calcium (Lipitor*) 80 mg PO DAILY [facility] Last Admin: 11/10/18 08:01 Dose: 80 mg Bupropion HCl (Wellbutrin Xl *) 150 mg PO DAILY [facility] Last Admin: 11/10/18 08:01 Dose: 150 mg Citalopram Hydrobromide (Celexa Tab*) 10 mg PO DAILY [facility] Last Admin: 11/10/18 08:01 Dose: 10 mg Donepezil HCl (Aricept Tab*) 5 mg PO DAILY [facility] Last Admin: 11/10/18 08:01 Dose: 5 mg Azithromycin 250 mg/ Sodium (Chloride) 250 mls @ 250 mls/hr IVPB Q24H [facility] Last Admin: 11/09/18 22:20 Dose: 250 mls/hr Metronidazole/Sodium Chloride (Flagyl 500 Mg Ivpb*) 500 mg in 100 mls @ 100 mls /hr IVPB Q12H [facility] Last Admin: 11/09/18 23:32 Dose: 100 mls/hr Ceftriaxone Sodium 1 gm/ (Sodium Chloride) 50 mls @ 200 mls/hr IVPB Q24H [facility] Last Admin: 11/09/18 21:44 Dose: 200 mls/hr Methylprednisolone Sodium Succinate (Solu-Medrol 40 Mg) 40 mg IV DAILY [facility] Last Admin: 11/10/18 08:01 Dose: 40 mg Montelukast Sodium (Singulair Tab*) 10 mg PO DAILY [facility] Last Admin: 11/10/18 08:01 Dose: 10 mg Ondansetron HCl (Zofran Inj*) 4 mg IV Q6H PRN PRN Reason: NAUSEA Vital Signs - 8 hr 11/10/18 11/10/1819 03:20 07:25 07:38 Temperature 98.7 F 98.6 F Pulse Rate 62 78 66 Respiratory 20 14 20 Rate Blood Pressure 128/84 120/77 (mmHg) O2 Sat by Pulse 97 96 98 Oximetry 11/10/18 08:00 Temperature Pulse Rate Respiratory 20 Rate Blood Pressure (mmHg) O2 Sat by Pulse Oximetry Oxygen Devices in Use Now: Nasal Cannula - 2 liters Appearance: elderly male lying in bed, not in distress, occasional coughing during my visit,. Eyes: PERRLA Respiratory: - - expiratory wheezing, with rhonchi. Cardiovascular: NL Sounds; No Murmurs; No JVD, RRR Abdominal: NL Sounds; No Tenderness; No Distention, No Hepatosplenomegaly Extremities: - - trace lower extremity edema, no calf tenderness Skin: No Rash or Ulcers Neurological: Alert and Oriented x 3 Result Diagrams: 11/09/18 05:22 11/09/18 05:22 Microbiology and Other Data: Microbiology 11/08/18 21:15 Aerobic Blood Culture - Preliminary Blood Venous No Growth Day 1 Anaerobic Blood Culture - Preliminary No Growth Day 1 11/08/18 20:01 Aerobic Blood Culture - Preliminary Blood Venous No Growth Day 1 Anaerobic Blood Culture - Preliminary No Growth Day 1 11/09/18 00:00 Nasal Screen MRSA (PCR) - Final Nasal Mrsa Not Detected Assess/Plan/Problems-Billing Assessment: 83 year old Male with COPD, 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 transferred to floor on . - Patient Problems (1) Sepsis due to pneumonia Current Visit: Yes Status: Acute Code(s): J18.9 - PNEUMONIA, UNSPECIFIED ORGANISM; A41.9 - SEPSIS, UNSPECIFIED ORGANISM SNOMED Code(s): 36766307 Comment: hemodynamically improved, BP improved, no longer tachycardic. was having altered mental status upon arrival, concern for aspiration. on rocephin, aziithro and flagyl swallow evaluation pending. (2) Atrial fibrillation Current Visit: Yes Status: Acute Code(s): I48.91 - UNSPECIFIED ATRIAL FIBRILLATION SNOMED Code(s): 00530707 Comment: new onset atrial fibrillation, required cardizem drip, now off cardizem NAZIA score high, will start eliquis, d/c aspirin. getting ECHO. currently sinus, (3) DVT prophylaxis Current Visit: No Status: Acute Code(s): SDF9544 - SNOMED Code(s): 255101265 Comment: edouard for atrial fib (4) COPD (chronic obstructive pulmonary disease) Current Visit: No Status: Chronic Code(s): J44.9 - CHRONIC OBSTRUCTIVE PULMONARY DISEASE, UNSPECIFIED SNOMED Code(s): 84963603 Comment: continue solumedrol 40mg IV duonebs PRN continue oxygen. on montelukast (5) Dementia Current Visit: No Status: Chronic Code(s): F03.90 - UNSPECIFIED DEMENTIA WITHOUT BEHAVIORAL DISTURBANCE SNOMED Code(s): 41402981 Comment: supportive care.
[2018-11-10] MEDS: metroNIDAZOLE IV 500 MG/100ML* 500 MG/100 ML BAG IVPB SCH ×2 (12:29→22:30)
--- NOTE | 2018-11-10 16:16 | ECHO ---
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 History: Coronary artery disease. Ascending aortic aneurysm. Dementia. Chronic obstructive pulmonary disease. Risk factors: Hypertension. Conclusions Summary: 1. Left ventricle: The cavity size is normal. Wall thickness is mildly increased. The estimated ejection fraction is 55-60%. Wall motion is normal; there are no regional wall motion abnormalities. 2. Left atrium: The atrium is mildly dilated. 3. Mitral valve: There is mild regurgitation. 4. Aortic valve: There is no evidence of stenosis. There is trace to mild regurgitation. 5. Pulmonary arteries: Systolic pressure is moderately increased, estimated to be 49 mm Hg. 6. Compared to study of 06/24/18, there is little change. Study data: Transthoracic echocardiogram. Procedure: Transthoracic echocardiography was performed. Image quality was fair. Complete 2D, spectral Doppler, and color flow Doppler. Patient status: Inpatient. Patient room number: 447-02. Rhythm: Normal sinus rhythm with PAC's. Findings Left ventricle: The cavity size is normal. Wall thickness is mildly increased. The estimated ejection fraction is 55-60%. Wall motion is normal; there are no regional wall motion abnormalities. There is no consistent Doppler evidence of clinically significant diastolic dysfunction. Right ventricle: The cavity size is normal. Systolic function is normal. The estimated peak pressure is 49 mm Hg. Left atrium: The atrium is mildly dilated. Right atrium: The atrium is mildly dilated. Mitral valve: The leaflets are mildly thickened. There is no evidence of stenosis. There is mild regurgitation. Aortic valve: The valve is trileaflet. The leaflets are mildly thickened. There is no evidence of stenosis. There is trace to mild regurgitation. Tricuspid valve: The valve is structurally normal. There is no evidence of stenosis. There is mild to moderate regurgitation. Pulmonic valve: The valve is structurally normal. There is no evidence of stenosis. There is trace regurgitation. Aorta: Aortic root: The aortic root is not dilated. Ascending aorta: The ascending aorta is not dilated. Aortic arch: The aortic arch is not dilated. Pericardium: There is no pericardial effusion. Pulmonary arteries: The main pulmonary artery is normal-sized. Systolic pressure is moderately increased, estimated to be 49 mm Hg. Systemic veins: Inferior vena cava: Not visualized. Measurements Left ventricle Value Ref Aortic valve Value Ref JUNE, LAX (L) 4.0 cm 4.2 - 5.8 Peak v, S 1.21 m/sec ----- ESD, LAX 2.6 cm 2.5 - 4.0 VTI, S 25.5 cm ----- FS, LAX 35 % 25 - 43 Mean grad, S 3.3 mm Hg ----- PW, ED, LAX (H) 1.1 cm 0.6 - 1.0 Peak grad, S 5.8 mm Hg ----- IVS/PW, ED 0.94 --------- LVOT/AV, VTI ratio 0.72 ----- E', lat scott, TDI (L) 7.0 cm/sec >=10.0 E/e', lat scott, TDI 13 --------- Mitral valve Value Ref E', med scott, TDI 9.0 cm/sec >=7.0 Peak E 0.92 m/sec --- -- E/e', med scott, TDI 10 --------- Peak A 0.58 m/sec ----- E', avg, TDI 8.0 cm/sec --------- Decel time 171 ms ----- E/e', avg, TDI 11 <=14 Peak grad, D 3.4 mm Hg --- -- Peak E/A ratio 1.59 ----- LVOT Value Ref Peak asher, S 0.92 m/sec --------- Pulmonic valve Value Ref VTI, S 18.3 cm --------- Peak v, S 0.9 m/sec ----- Peak grad, S 3 mm Hg --------- Peak grad, S 3.3 mm Hg ----- Mean grad, S 2 mm Hg --------- Tricuspid valve Value Ref Ventricular septum Value Ref TR peak v (H) 3.2 m/sec <=2.8 IVS, ED 1.0 cm 0.6 - 1.0 Peak RV-RA grad, S 41 mm Hg ----- Right ventricle Value Ref Aortic root Value Ref JUNE, LAX 3.3 cm --------- Root diam 3.4 cm <4.1 JUNE major ax, A4C (L) 3.0 cm 5.9 - 8.3 Pressure, S 49 mm Hg --------- Ascending aorta Value Ref AAo AP diam, S 3.4 cm ----- Left atrium Value Ref LA ID 3.6 cm --------- Aortic arch Value Ref ML dim, A4C 4.2 cm --------- Arch diam 3.3 cm ----- SI dim, A4C 5.3 cm --------- Vol, ES, 2-p 65 ml --------- Decending aorta Value Ref Vol/bsa, ES, 2-p 34 ml/m^2 16 - 34 Jeanie peak asher 0.33 m/sec ----- Right atrium Value Ref Pulmonary artery Value Ref ML dim, ES, A4C (H) 4.7 cm 2.6 - 4.4 Pressure, S 45.7 mm Hg ----- SI dim, ES, A4C (H) 5.6 cm 3.4 - 5.3 Estimated RAP 8 mm Hg --------- Legend: (L) and (H) edi values outside specified reference range. Prepared and electronically signed by Lukasz Rodriguez MD 11/10/2018 16:16
[2018-11-10] MEDS: cefTRIAXone(*) 1 GM in NS 0.9% 50 ML* 50 ML IVPB SCH (20:20)
[2018-11-10] MEDS: Azithromycin IV(*) 250 MG in NS 0.9% 250 ML* 250 ML IVPB SCH (20:56)
[2018-11-10] MEDS: Apixaban* 2.5 MG TAB PO SCH (20:56)
[2018-11-11 06:22] LABS: Hematocrit 40 % (42-52); Hemoglobin 13.2 g/dL (14.0-18.0); Mean Corpuscular HGB Conc 33 g/dL (31-36); Mean Corpuscular Hemoglobin 29 pg (27-31); Mean Corpuscular Volume 89 fL (80-94); Mean Platelet Volume 7.4 fL (7.4-10.4); Platelet Count 287 10^3/uL (150-450); Red Blood Count 4.49 10^6 /uL (4.18-5.48); Red Cell Distribution Width 14 % (10-15); White Blood Count 20.9 10^3/uL (3.5-10.8)
[2018-11-11 06:44] LABS: BUN/Creatinine Ratio 30.4 (8-20); Calcium 8.4 mg/dL (8.6-10.3); EGFR African American 75.8 (>60); EGFR Non-African American 62.6 (>60)
[2018-11-11 07:19] LABS: ABS Lymphocytes 1.4 10^3/ul (1.0-4.8); ABS Neutrophils 17.4 10^3/ul (1.5-7.7); Eosinophil % 0.1 %; Lymphocyte % 6.8 %
[2018-11-11] MEDS: Acetaminophen TAB* 325 MG PO PRN (08:07)
[2018-11-11] MEDS: BuPROPion XL* 150 MG TAB.XL PO SCH (08:07)
[2018-11-11] MEDS: Montelukast Sodium TAB* 10 MG PO SCH (08:07)
[2018-11-11] MEDS: methylPREDNISolone SOD 40 MG* 1 ML VIAL IV SCH (08:07)
[2018-11-11] MEDS: Atorvastatin* 80 MG TAB PO SCH (08:07)
[2018-11-11] MEDS: Citalopram TAB* 10 MG PO SCH (08:07)
[2018-11-11] MEDS: Apixaban* 2.5 MG TAB PO SCH ×2 (08:07→21:12)
[2018-11-11] MEDS: Donepezil TAB* 5 MG PO SCH (08:07)
[2018-11-11] MEDS: metroNIDAZOLE IV 500 MG/100ML* 500 MG/100 ML BAG IVPB SCH ×2 (10:26→23:24)
[2018-11-11] MEDS ORDERED: Artificial Tear OPHTH.OINT* 3.5 GM RIGHT EYE PRN (11:32)
[2018-11-11] MEDS ORDERED: Acetaminophen TAB* 325 MG PO ONE (11:32)
--- NOTE | 2018-11-11 11:33 | PN ---
Subjective Date of Service: 11/11/18 Interval History: Having headache since yesterday evening, reports dull 5/10 headache, was given tylenol in the morning without relief. Also having right eye itching, redness and pain. There is no nausea, no vomiting. Objective Active Medications: Acetaminophen (Tylenol Tab*) 650 mg PO Q6H PRN PRN Reason: FEVER/PAIN Last Admin: 11/11/18 08:07 Dose: 650 mg Acetaminophen (Tylenol Tab*) 650 mg PO ONCE ONE Stop: 11/11/18 11:33 Albuterol (Ventolin 2.5 Mg/3 Ml Neb.Kristi*) 2.5 mg INH Q6H PRN PRN Reason: SOB/WHEEZING Last Admin: 11/11/18 03:40 Dose: 2.5 mg Apixaban (Eliquis*) 2.5 mg PO BID [facility] Last Admin: 11/11/18 08:07 Dose: 2.5 mg Atorvastatin Calcium (Lipitor*) 80 mg PO DAILY [facility] Last Admin: 11/11/18 08:07 Dose: 80 mg Bupropion HCl (Wellbutrin Xl *) 150 mg PO DAILY [facility] Last Admin: 11/11/18 08:07 Dose: 150 mg Citalopram Hydrobromide (Celexa Tab*) 10 mg PO DAILY [facility] Last Admin: 11/11/18 08:07 Dose: 10 mg Donepezil HCl (Aricept Tab*) 5 mg PO DAILY [facility] Last Admin: 11/11/18 08:07 Dose: 5 mg Azithromycin 250 mg/ Sodium (Chloride) 250 mls @ 250 mls/hr IVPB Q24H [facility] Last Admin: 11/10/18 20:56 Dose: 250 mls/hr Metronidazole/Sodium Chloride (Flagyl 500 Mg Ivpb*) 500 mg in 100 mls @ 100 mls /hr IVPB Q12H [facility] Last Admin: 11/11/18 10:26 Dose: 100 mls/hr Ceftriaxone Sodium 1 gm/ (Sodium Chloride) 50 mls @ 200 mls/hr IVPB Q24H [facility] Last Admin: 11/10/18 20:20 Dose: 200 mls/hr Montelukast Sodium (Singulair Tab*) 10 mg PO DAILY [facility] Last Admin: 11/11/18 08:07 Dose: 10 mg Ondansetron HCl (Zofran Inj*) 4 mg IV Q6H PRN PRN Reason: NAUSEA Prednisone (Deltasone Tab*) 30 mg PO DAILY [facility] Vital Signs - 8 hr 11/11/18 11/11/18 11/11/18 03:40 07:31 08:00 Temperature 97.6 F Pulse Rate 98 91 Respiratory 20 18 18 Rate Blood Pressure 151/98 (mmHg) O2 Sat by Pulse 97 93 Oximetry Oxygen Devices in Use Now: Nasal Cannula Appearance: Elderly male lying in bed, not in distress Eyes: - - right eye erythematous. Respiratory: - - no tachypnea, minimal expiratory wheezing. Cardiovascular: RRR, No Edema Extremities: No Edema Neurological: Alert and Oriented x 3, - - morot 5/5 all 4 ext, speech clear, no nystagmus, symmetric smile Result Diagrams: 11/11/18 06:00 11/11/18 06:00 Microbiology and Other Data: Microbiology 11/08/18 21:15 Aerobic Blood Culture - Preliminary Blood Venous No Growth Day 1 Anaerobic Blood Culture - Preliminary No Growth Day 1 11/08/18 20:01 Aerobic Blood Culture - Preliminary Blood Venous No Growth Day 1 Anaerobic Blood Culture - Preliminary No Growth Day 1 11/09/18 00:00 Nasal Screen MRSA (PCR) - Final Nasal Mrsa Not Detected Assess/Plan/Problems-Billing Assessment: 83 year old Male with COPD, 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 transferred to floor on . - Patient Problems (1) Sepsis due to pneumonia Current Visit: Yes Status: Acute Code(s): J18.9 - PNEUMONIA, UNSPECIFIED ORGANISM; A41.9 - SEPSIS, UNSPECIFIED ORGANISM SNOMED Code(s): 08037544 Comment: hemodynamically improved, BP improved, no longer tachycardic. was having altered mental status upon arrival, concern for aspiration. on rocephin, aziithro and flagyl cultures are negative. swallow eval done: on soft diet with thin liquids (2) Headache Current Visit: Yes Status: Acute Code(s): R51 - HEADACHE SNOMED Code(s): 92996590 Comment: headache since yesterday, not relieved with acetaminophen. yesterday was also started on Eliquis- so will check head CT to ensure no bleeding. does not have any focal neurological deficit. (3) Atrial fibrillation Current Visit: Yes Status: Acute Code(s): I48.91 - UNSPECIFIED ATRIAL FIBRILLATION SNOMED Code(s): 02540314 Comment: new onset atrial fibrillation, required cardizem drip, now off cardizem NAZIA score high, eliquis started for anticoagualtion currently sinus ECHO done. (4) DVT prophylaxis Current Visit: No Status: Acute Code(s): QLA6058 - SNOMED Code(s): 410205585 Comment: eliqiuis for atrial fib (5) COPD (chronic obstructive pulmonary disease) Current Visit: No Status: Chronic Code(s): J44.9 - CHRONIC OBSTRUCTIVE PULMONARY DISEASE, UNSPECIFIED SNOMED Code(s): 40817273 Comment: change from IV solumedrol to PO predinsion - will need to taper. duonebs PRN continue oxygen. on montelukast (6) Dementia Current Visit: No Status: Chronic Code(s): F03.90 - UNSPECIFIED DEMENTIA WITHOUT BEHAVIORAL DISTURBANCE SNOMED Code(s): 00082993 Comment: supportive care. Status and Disposition: getting head CT for headache changed IV steroids to PO plan for discharge 1-2 days if no new issues, will need PO antibiotics upon discharge.
[2018-11-11] MEDS ORDERED: Labetalol IV* 5 MG/ML 20 ML VIAL IV PUSH ONE (12:25)
[2018-11-11] MEDS: cefTRIAXone(*) 1 GM in NS 0.9% 50 ML* 50 ML IVPB SCH (21:13)
[2018-11-11] MEDS: Azithromycin IV(*) 250 MG in NS 0.9% 250 ML* 250 ML IVPB SCH (21:51)
[2018-11-12 06:37] LABS: Hematocrit 40 % (42-52); Hemoglobin 13.4 g/dL (14.0-18.0); Mean Corpuscular HGB Conc 33 g/dL (31-36); Mean Corpuscular Hemoglobin 30 pg (27-31); Mean Corpuscular Volume 89 fL (80-94); Mean Platelet Volume 7.4 fL (7.4-10.4); Platelet Count 302 10^3/uL (150-450); Red Blood Count 4.51 10^6 /uL (4.18-5.48); Red Cell Distribution Width 14 % (10-15); White Blood Count 19.8 10^3/uL (3.5-10.8)
[2018-11-12 07:44] LABS: ABS Basophils 0.1 10^3/ul (0-0.2); ABS Eosinophils 0.2 10^3/ul (0-0.6); ABS Lymphocytes 2.2 10^3/ul (1.0-4.8); ABS Monocytes 1.8 10^3/ul (0-0.8); ABS Neutrophils 15.6 10^3/ul (1.5-7.7); Eosinophil % 0.8 %
[2018-11-12] MEDS: BuPROPion XL* 150 MG TAB.XL PO SCH (08:05)
[2018-11-12] MEDS: Donepezil TAB* 5 MG PO SCH (08:06)
[2018-11-12] MEDS: Citalopram TAB* 10 MG PO SCH (08:06)
[2018-11-12] MEDS: Atorvastatin* 80 MG TAB PO SCH (08:06)
[2018-11-12] MEDS: Apixaban* 2.5 MG TAB PO SCH (08:06)
[2018-11-12] MEDS ORDERED: predniSONE TAB* 10 MG PO SCH (09:00)
[2018-11-12] MEDS: Montelukast Sodium TAB* 10 MG PO SCH (09:08)
[2018-11-12] MEDS: metroNIDAZOLE IV 500 MG/100ML* 500 MG/100 ML BAG IVPB SCH (09:44)
[2018-11-12 16:13] VITALS: BP 169/92
--- NOTE | 2018-11-13 10:45 | DS ---
CC: Neel Shaw DISCHARGE SUMMARY: DATE OF ADMISSION: 11/08/18 DATE OF DISCHARGE: 11/12/18 PRIMARY DIAGNOSIS: Pneumonia. SECONDARY DIAGNOSES: 1. New onset atrial fibrillation. 2. Coronary artery disease. 3. Heart failure with reduced ejection fraction 40% to 45%. 4. Hypertension. 5. Dementia. 6. Chronic obstructive pulmonary disease. 7. Hypersensitivity pneumonitis (tong's lung). MEDICATIONS ON DISCHARGE: 1. Albuterol inhaler 2 puffs q.4 hours p.r.n. wheezing. 2. Atorvastatin 80 mg p.o. q.p.m. 3. Wellbutrin XL 150 mg p.o. q.a.m. 4. Citalopram 40 mg p.o. daily. 5. Donepezil 5 mg p.o. q.h.s. 6. Advair Diskus 500/50 one inhalation b.i.d. 7. Montelukast 10 mg p.o. daily. 8. Quetiapine 100 mg p.o. q.h.s. 9. Tamsulosin 0.4 mg p.o. daily. 10. Trazodone 150 mg p.o. q.h.s. 11. Albuterol nebulizer as needed. 12. Apixaban 2.5 mg p.o. b.i.d. 13. Artificial Tears to the right eye as needed for irritation. 14. Aspirin 81 mg p.o. daily. 15. Azithromycin 250 mg p.o. daily for 3 days. 16. Cefuroxime 500 mg p.o. b.i.d. for 4 days. 17. Lisinopril 2.5 mg p.o. daily. 18. Flagyl 250 mg p.o. t.i.d. for 4 days. 19. Prednisone taper 30 mg for 2 days, 20 mg for 2 days, 10 mg for 2 days, and then stop. HOSPITAL COURSE: This is an 83-year-old male with multiple medical problems, who was admitted to the hospital through the ER with dyspnea, cough, and supraventricular tachycardia. He was found to have atrial fibrillation and was treated with intravenous fluids and diltiazem drip. The patient's heart rate came under control, and after titrating off the drip, he did not require rate control agents. His EKG on 11/09/18 showed atrial flutter with a heart rate of 68. It was thought that his AFib was triggered by pulmonary disease. He was started on Eliquis without any incident for prevention of str jazmín. The patient's admission chest x-ray did not demonstrate any acute infiltrates. The patient did have rales on exam and clinically he had pneumonia. He remained afebrile throughout the hospital stay but he had a white cell count of 18.3 on admission, which climbed to 20.9 on 11/11/18. The patient had a headache on admission and was evaluated with a head CT, which was negative for infarct or bleed. Bryce steinberg had a repeat head CT on 11/11/18, which was also negative for bleed because of continued headache a nd concern about hemorrhage from the anticoagulation. Given his chronic lung disease, he was treated empirically with azithromycin, ceftriaxone, and Flagyl, and this was essentially continued on discha rge. Sputum Gram stain grew yeast and other madina, and blood cultures were negative at discharge. Other laboratory data during the hospital stay, initial hemoglobin was 14.2, which fell to 13.4 on di scharge. His creatinine was 1.84 on admission and fell to 1.12 on discharge consistent with acute ki dney injury with dehydration. Initial lactic acid was 1.7. Hemoglobin A1c was 5.6. Troponin was 0. 04 on 2 occasions on the first 24 hours of the hospital stay, which was not significantly elevated. TSH was checked, that was 1.86. DISPOSITION: To home where he lives with his . FOLLOWUP: Should be with primary care. Status was inpatient. His condition is good. Diet should b e low salt. Activity should be as tolerated. TIME SPENT: I spent greater than 45 minutes with the patient on the day of discharge and completing necessary paper work. [id number]/[facility] #: [id number]
== END 2018-11-12 16:19 | disposition home health service (06) | DRG 194 ==
LOC: ED 19:25 → UNDOADMIN 21:27 → ICU 21:27 → MEDTELE 11-09 14:07 → ICU 11-09 14:07 → UNDODISIN 11-12 16:19
PROVIDERS: ADMIT Internal Medicine; ATTEND Internal Medicine
DX: J18.9 Pneumonia, unspecified organism (principal); I50.22 Chronic systolic (congestive) heart failure; J44.0 Chronic obstructive pulmonary disease with (acute) lower respiratory infection; N17.9 Acute kidney failure, unspecified; I48.92 Unspecified atrial flutter; I47.1 Supraventricular tachycardia; J45.909 Unspecified asthma, uncomplicated; I25.10 Atherosclerotic heart disease of native coronary artery without angina pectoris; I71.4 Abdominal aortic aneurysm, without rupture; F03.90 Unspecified dementia, unspecified severity, without behavioral disturbance, psychotic disturbance, mood disturbance, and anxiety; Z66 Do not resuscitate; I13.10 Hypertensive heart and chronic kidney disease without heart failure, with stage 1 through stage 4 chronic kidney disease, or unspecified chronic kidney disease; N18.9 Chronic kidney disease, unspecified; F32.9 Major depressive disorder, single episode, unspecified; N28.1 Cyst of kidney, acquired; Z95.5 Presence of coronary angioplasty implant and graft; Z88.8 Allergy status to other drugs, medicaments and biological substances; Z98.41 Cataract extraction status, right eye; Z82.49 Family history of ischemic heart disease and other diseases of the circulatory system; Z82.3 Family history of stroke; Z87.891 Personal history of nicotine dependence; I25.2 Old myocardial infarction; Z72.89 Other problems related to lifestyle; Z79.82 Long term (current) use of aspirin; Z79.01 Long term (current) use of anticoagulants
CPT/HCPCS: 36415; 70450; 71045; 80048; 80053; 80076; 81003; 81015; 83036; 83605; 83735; 83880; 84443; 84484; 85025; 85610; 86140; 87040; 87070; 87205; 87641; 93005; 93306; 94640; 99285; A9270-GY; G8978-GP-CL; G8979-GP-CI; J0456; J0696; J1650; J2270; J2920; J7512

== ENCOUNTER 2019-12-04 08:56 | Inpatient (IN) ==
[2019-12-04 10:22] LABS: ABS Basophils 0.1 10^3/ul (0-0.2); ABS Eosinophils 0.3 10^3/ul (0-0.6); ABS Lymphocytes 1.1 10^3/ul (1.0-4.8); ABS Monocytes 0.9 10^3/ul (0-0.8); Eosinophil % 1.8 %; Hematocrit 45 % (42-52); Hemoglobin 15.8 g/dL (14.0-18.0); Lymphocyte % 7.3 %; Mean Corpuscular HGB Conc 35 g/dL (31-36); Mean Corpuscular Hemoglobin 31 pg (27-31); Mean Corpuscular Volume 89 fL (80-94); Mean Platelet Volume 7.7 fL (7.4-10.4); Platelet Count 189 10^3/uL (150-450); Red Blood Count 5.09 10^6 /uL (4.18-5.48); Red Cell Distribution Width 14 % (10-15); White Blood Count 15.1 10^3/uL (3.5-10.8)
[2019-12-04 10:31] LABS: Activated Partial Thrombo Time 29.6 seconds (26.0-38.0); INR 1.01 (0.82-1.09)
[2019-12-04 10:38] LABS: Albumin 3.7 g/dL (3.2-5.2); Albumin/Globulin Ratio 1.3 (1-3); C Reactive Protein 4.05 mg/L (<8.01); Calcium 9.2 mg/dL (8.6-10.3); EGFR African American 40.6 (>60); EGFR Non-African American 33.5 (>60); Globulin 2.9 g/dL (2-4); Potassium 3.9 mmol/L (3.5-5.0); Total Bilirubin 0.8 mg/dL (0.2-1.0); Total Protein 6.6 g/dL (6.4-8.9)
[2019-12-04] MEDS ORDERED: Morphine 2 MG/ML SYRINGE IV ONE (11:22)
[2019-12-04] MEDS ORDERED: Ondansetron 4 mg VIAL 2 MG/ML 2 ml VIAL IV PRN ×2 (11:37→16:40)
[2019-12-04] MEDS ORDERED: hydrALAZINE 20 mg/ml 1 ML Vial IV IV SLOW PU ONE (12:51)
[2019-12-04] MEDS ORDERED: ceFAZolin 2 GM PREMIX in ORs 2 GM/50 ML BAG ONE (13:51)
[2019-12-04] MEDS ORDERED: Heparin 5000 UNITS/ML VIAL(*) 1 ml vial SUBCUT SCH (14:00)
[2019-12-04] MEDS ORDERED: Midazolam 2 mg/2 ml VIAL 1 mg/ml 2 ml VIAL (2 mg) ONE (14:16)
[2019-12-04] MEDS ORDERED: fentaNYL 100 mcg/2 ml 50 MCG/ML VIAL ONE (14:17)
[2019-12-04] MEDS ORDERED: Bupivacaine 0.5% SDV PF 30ML VIAL ONE (14:53)
[2019-12-04] MEDS ORDERED: ROPIVACAINE 5 MG/ML 30 ML BTL (0.5%) ONE (14:53)
[2019-12-04] MEDS ORDERED: Propofol 10 MG/ML 20 ML BTL ONE ×2 (15:15→15:24)
[2019-12-04] MEDS ORDERED: Phenylephrine 40 mcg/mL 10mL (400mcg) SYRINGE ONE (15:43)
[2019-12-04] MEDS ORDERED: Phenylephrine IV 10 MG/ML 1 ml VIAL ONE (16:02)
[2019-12-04] MEDS ORDERED: Dexamethasone IV 4 MG/ML VIAL 1 ml VIAL ONE (16:08)
[2019-12-04] MEDS ORDERED: Calcium CHLORIDE 10% SYRINGE 1 GM/10 ML ONE (16:09)
[2019-12-04] MEDS ORDERED: Buffered Lidocaine 1% SYRIN 1 ml INTRADERM ONE (16:37)
[2019-12-04] MEDS ORDERED: Naloxone 0.4 mg VIAL 0.4 mg/ml 1 ml VIAL IV PRN (16:40)
[2019-12-04] MEDS ORDERED: fentaNYL 100 mcg/2 ml 50 MCG/ML VIAL IV PRN (16:40)
[2019-12-04] MEDS ORDERED: Levalbuterol 0.63MG/3ML NEB UNIT OF USE INH PRN (16:40)
[2019-12-04] MEDS ORDERED: diPHENhydraMINE IV 50 MG/ML 1 ml VIAL (BENADRYL) IV PRN (16:40)
[2019-12-04] MEDS ORDERED: Acetaminophen IV 1 GM/100ML 100 ML ONE (16:44)
[2019-12-04] MEDS ORDERED: Lactated Ringers 1000 ml BAG 1,000 ML IV SCH (17:00)
[2019-12-04] MEDS: Lactated Ringers 1000 ml BAG 1,000 ML IV SCH (19:28)
[2019-12-04] MEDS: Erythromycin OPTH OINT APPLIC OINT RIGHT EYE SCH ×2 (20:27→22:41)
[2019-12-04] MEDS: oxyCODONE/Acetamin 5/325 mg TAB PO PRN (21:49)
[2019-12-04] MEDS: Morphine 2 MG/ML SYRINGE IV PRN (23:16)
[2019-12-04] MEDS: ceFAZolin 1 GM* X 3 DOSES POST-OP Q8H (AddVan) IVPB SCH (23:43)
[2019-12-05] MEDS: oxyCODONE/Acetamin 5/325 mg TAB PO PRN ×2 (01:55→08:24)
[2019-12-05] MEDS: Morphine 2 MG/ML SYRINGE IV PRN (08:22)
[2019-12-05] MEDS: ceFAZolin 1 GM* X 3 DOSES POST-OP Q8H (AddVan) IVPB SCH ×2 (08:30→15:46)
[2019-12-05] MEDS: Erythromycin OPTH OINT APPLIC OINT RIGHT EYE SCH ×3 (08:40→23:21)
[2019-12-05 09:07] LABS: ABS Eosinophils 0.5 10^3/ul (0-0.6); ABS Lymphocytes 0.8 10^3/ul (1.0-4.8); ABS Monocytes 0.9 10^3/ul (0-0.8); Eosinophil % 3.7 %; Hematocrit 41 % (42-52); Hemoglobin 13.8 g/dL (14.0-18.0); Lymphocyte % 6.1 %; Mean Corpuscular HGB Conc 34 g/dL (31-36); Mean Corpuscular Hemoglobin 31 pg (27-31); Mean Corpuscular Volume 91 fL (80-94); Mean Platelet Volume 7.7 fL (7.4-10.4); Platelet Count 154 10^3/uL (150-450); Red Blood Count 4.47 10^6 /uL (4.18-5.48); Red Cell Distribution Width 14 % (10-15); White Blood Count 13.5 10^3/uL (3.5-10.8)
[2019-12-05 09:21] LABS: Calcium 8.8 mg/dL (8.6-10.3); Potassium 4.6 mmol/L (3.5-5.0)
[2019-12-05 09:26] LABS: BUN/Creatinine Ratio 17.3 (8-20); EGFR African American 45.8 (>60); EGFR Non-African American 37.8 (>60)
[2019-12-05] MEDS: Lactated Ringers 1000 ml BAG 1,000 ML IV SCH (10:01)
[2019-12-05] MEDS ORDERED: NS 0.9% 500 ml BAG 500 ML IV ONE (17:25)
[2019-12-05] MEDS: NS 0.9% 1000 ml BAG 1,000 ML IV SCH (17:31)
[2019-12-06] MEDS: oxyCODONE/Acetamin 5/325 mg TAB PO PRN (00:30)
[2019-12-06] MEDS: NS 0.9% 1000 ml BAG 1,000 ML IV SCH ×2 (02:07→17:36)
[2019-12-06 06:30] LABS: ABS Basophils 0.1 10^3/ul (0-0.2); ABS Eosinophils 0.9 10^3/ul (0-0.6); ABS Lymphocytes 1.3 10^3/ul (1.0-4.8); ABS Monocytes 0.9 10^3/ul (0-0.8); Hematocrit 34 % (42-52); Hemoglobin 11.5 g/dL (14.0-18.0); Lymphocyte % 12.3 %; Mean Corpuscular HGB Conc 34 g/dL (31-36); Mean Corpuscular Hemoglobin 31 pg (27-31); Mean Corpuscular Volume 92 fL (80-94); Mean Platelet Volume 8.3 fL (7.4-10.4); Platelet Count 135 10^3/uL (150-450); Red Blood Count 3.69 10^6 /uL (4.18-5.48); Red Cell Distribution Width 14 % (10-15); White Blood Count 10.9 10^3/uL (3.5-10.8)
[2019-12-06 06:47] LABS: Calcium 8.1 mg/dL (8.6-10.3); EGFR African American 48.7 (>60); EGFR Non-African American 40.2 (>60); Potassium 4.2 mmol/L (3.5-5.0)
[2019-12-06] MEDS: Erythromycin OPTH OINT APPLIC OINT RIGHT EYE SCH (09:22)
[2019-12-06] MEDS: Senna TAB 8.6 mg TAB PO PRN (09:22)
[2019-12-06] MEDS: Ciprofloxacin 0.3% OPTH.SOL 5 ML BTL RIGHT EYE SCH ×3 (12:53→21:12)
[2019-12-06] MEDS: Albuterol HFA INHALER 8 gm MDI INH PRN (22:07)
[2019-12-07 04:50] LABS: ABS Basophils 0.1 10^3/ul (0-0.2); ABS Lymphocytes 1.4 10^3/ul (1.0-4.8); ABS Monocytes 0.9 10^3/ul (0-0.8); Eosinophil % 10.1 %; Hematocrit 31 % (42-52); Hemoglobin 10.9 g/dL (14.0-18.0); Lymphocyte % 14.8 %; Mean Corpuscular HGB Conc 35 g/dL (31-36); Mean Corpuscular Hemoglobin 32 pg (27-31); Mean Corpuscular Volume 91 fL (80-94); Platelet Count 126 10^3/uL (150-450); Red Blood Count 3.45 10^6 /uL (4.18-5.48); Red Cell Distribution Width 14 % (10-15); White Blood Count 9.4 10^3/uL (3.5-10.8)
[2019-12-07 05:03] LABS: BUN/Creatinine Ratio 21.3 (8-20); Calcium 7.6 mg/dL (8.6-10.3); EGFR African American 65.4 (>60); Potassium 3.9 mmol/L (3.5-5.0)
[2019-12-07] MEDS: NS 0.9% 1000 ml BAG 1,000 ML IV SCH ×2 (07:21→20:28)
[2019-12-07] MEDS: Ciprofloxacin 0.3% OPTH.SOL 5 ML BTL RIGHT EYE SCH ×4 (08:56→20:31)
[2019-12-07] MEDS: Albuterol HFA INHALER 8 gm MDI INH PRN (09:15)
[2019-12-07] MEDS: Senna TAB 8.6 mg TAB PO PRN (09:33)
[2019-12-07 18:04] LABS: Urine Appearance Clear; Urine Bilirubin Negative (Negative); Urine Blood Negative (Negative); Urine Color Yellow; Urine Glucose Negative (Negative); Urine Ketones Negative (Negative); Urine Nitrite Negative (Negative); Urine Protein 1+(30 mg/dL) (Negative); Urine Specific Gravity 1.017 (1.010-1.030); Urine Urobilinogen Negative (Negative)
[2019-12-07 18:06] LABS: Urine Bacteria Absent (Absent); Urine Red Blood Cell 2+(6-10/hpf) (Absent); Urine White Blood Cell Absent (Absent)
[2019-12-08] MEDS: Albuterol HFA INHALER 8 gm MDI INH PRN ×2 (08:39→10:24)
[2019-12-08] MEDS: Ciprofloxacin 0.3% OPTH.SOL 5 ML BTL RIGHT EYE SCH (08:57)
[2019-12-08 09:08] VITALS: BP 146/94
[2019-12-08] MEDS: Senna TAB 8.6 mg TAB PO PRN (09:54)
== END 2019-12-08 11:33 | DRG 470 ==
LOC: ED 08:56 → SSU 11:37
PROVIDERS: ADMIT Internal Medicine; ATTEND Internal Medicine

== ENCOUNTER 2019-12-08 10:17 | Inpatient (IN) ==
[2019-12-08] MEDS ORDERED: Magnesium Hydroxide LIQ 30 ML UDC PO PRN (16:36)
[2019-12-08] MEDS ORDERED: Senna TAB 8.6 mg TAB PO PRN (16:36)
[2019-12-08] MEDS: Albuterol HFA INHALER 8 gm MDI INH PRN (18:10)
[2019-12-08] MEDS: Ciprofloxacin 0.3% OPTH.SOL BTL RIGHT EYE SCH ×2 (18:10→21:05)
[2019-12-09] MEDS: Ciprofloxacin 0.3% OPTH.SOL BTL RIGHT EYE SCH ×6 (02:34→21:44)
[2019-12-09 07:13] LABS: ABS Basophils 0.1 10^3/ul (0-0.2); ABS Eosinophils 0.8 10^3/ul (0-0.6); ABS Lymphocytes 1.7 10^3/ul (1.0-4.8); ABS Monocytes 1.2 10^3/ul (0-0.8); ABS Neutrophils 6.6 10^3/ul (1.5-7.7); Eosinophil % 7.6 %; Hematocrit 34 % (42-52); Lymphocyte % 16.3 %; Mean Corpuscular HGB Conc 35 g/dL (31-36); Mean Corpuscular Hemoglobin 32 pg (27-31); Mean Corpuscular Volume 90 fL (80-94); Mean Platelet Volume 7.5 fL (7.4-10.4); Platelet Count 201 10^3/uL (150-450); Red Blood Count 3.81 10^6 /uL (4.18-5.48); Red Cell Distribution Width 14 % (10-15); White Blood Count 10.4 10^3/uL (3.5-10.8)
[2019-12-09 07:30] LABS: Albumin 2.8 g/dL (3.2-5.2); Albumin/Globulin Ratio 1.1 (1-3); BUN/Creatinine Ratio 19.1 (8-20); Calcium 8.1 mg/dL (8.6-10.3); EGFR African American 77.2 (>60); EGFR Non-African American 63.8 (>60); Globulin 2.6 g/dL (2-4); Potassium 4.1 mmol/L (3.5-5.0); Total Bilirubin 0.8 mg/dL (0.2-1.0); Total Protein 5.4 g/dL (6.4-8.9)
[2019-12-09] MEDS: Albuterol HFA INHALER 8 gm MDI INH PRN ×2 (08:46→15:00)
[2019-12-09] MEDS ORDERED: D5NS 0.9% 1000 ml BAG 1,000 ML IV SCH ×2 (13:00→20:05)
[2019-12-09] MEDS: Mometasone/Formoter 200/5 MDI INH SCH (21:42)
[2019-12-10] MEDS: Ciprofloxacin 0.3% OPTH.SOL BTL RIGHT EYE SCH ×6 (02:34→21:48)
[2019-12-10] MEDS: Mometasone/Formoter 200/5 MDI INH SCH ×2 (08:16→20:27)
[2019-12-11] MEDS: Ciprofloxacin 0.3% OPTH.SOL BTL RIGHT EYE SCH ×6 (02:46→22:08)
[2019-12-11] MEDS: Mometasone/Formoter 200/5 MDI INH SCH ×2 (09:14→20:59)
[2019-12-11] MEDS: oxyCODONE/Acetamin 5/325 mg TAB PO PRN ×2 (23:53)
[2019-12-12] MEDS: Ciprofloxacin 0.3% OPTH.SOL BTL RIGHT EYE SCH ×3 (01:28→10:46)
[2019-12-12] MEDS: Mometasone/Formoter 200/5 MDI INH SCH ×2 (10:46→20:15)
[2019-12-12] MEDS: Tobramycin/Dexameth OPTH.SUSP 2.5 ml BTL RIGHT EYE SCH ×4 (13:08→21:53)
[2019-12-13] MEDS: Tobramycin/Dexameth OPTH.SUSP 2.5 ml BTL RIGHT EYE SCH ×6 (00:10→21:33)
[2019-12-13] MEDS: Mometasone/Formoter 200/5 MDI INH SCH ×2 (11:03→21:27)
[2019-12-14] MEDS: Tobramycin/Dexameth OPTH.SUSP 2.5 ml BTL RIGHT EYE SCH ×5 (06:10→22:22)
[2019-12-14] MEDS: Mometasone/Formoter 200/5 MDI INH SCH ×2 (09:39→20:55)
[2019-12-14] MEDS: Dextran 70/Hypromellose Tears Eye Drops 15 ml BTL (for Artificials Tears) RIGHT EYE PRN (22:22)
[2019-12-15] MEDS: Dextran 70/Hypromellose Tears Eye Drops 15 ml BTL (for Artificials Tears) RIGHT EYE PRN ×2 (00:55→03:31)
[2019-12-15] MEDS: Tobramycin/Dexameth OPTH.SUSP 2.5 ml BTL RIGHT EYE SCH ×5 (05:34→21:12)
[2019-12-15] MEDS: Mometasone/Formoter 200/5 MDI INH SCH ×2 (08:54→21:08)
[2019-12-16] MEDS: Tobramycin/Dexameth OPTH.SUSP 2.5 ml BTL RIGHT EYE SCH ×2 (05:23→10:20)
[2019-12-16 06:22] LABS: ABS Basophils 0.1 10^3/ul (0-0.2); ABS Eosinophils 0.6 10^3/ul (0-0.6); ABS Monocytes 0.8 10^3/ul (0-0.8); Eosinophil % 5.9 %; Hematocrit 32 % (42-52); Hemoglobin 11.1 g/dL (14.0-18.0); Lymphocyte % 18.7 %; Mean Corpuscular HGB Conc 34 g/dL (31-36); Mean Corpuscular Hemoglobin 31 pg (27-31); Mean Corpuscular Volume 90 fL (80-94); Platelet Count 355 10^3/uL (150-450); Red Blood Count 3.61 10^6 /uL (4.18-5.48); Red Cell Distribution Width 14 % (10-15); White Blood Count 10.5 10^3/uL (3.5-10.8)
[2019-12-16 06:25] VITALS: BP 140/75
[2019-12-16 06:41] LABS: Calcium 8.3 mg/dL (8.6-10.3); Potassium 4.3 mmol/L (3.5-5.0); Total Bilirubin 0.5 mg/dL (0.2-1.0)
[2019-12-16 06:47] LABS: Albumin/Globulin Ratio 1.2 (1-3); BUN/Creatinine Ratio 17.1 (8-20); EGFR African American 71.9 (>60); EGFR Non-African American 59.4 (>60); Globulin 2.5 g/dL (2-4); Total Protein 5.5 g/dL (6.4-8.9)
[2019-12-16] MEDS: Mometasone/Formoter 200/5 MDI INH SCH (10:21)
== END 2019-12-16 14:38 | disposition home health service (06) | DRG 561 ==
LOC: PMRU 11:39
PROVIDERS: ADMIT Physical Medicine & Rehabilitation; ATTEND Physical Medicine & Rehabilitation